=== PATIENT | female | born 1950 | race Caucasian/White ===

== ENCOUNTER 2017-06-25 11:00 | Outpatient (RCR) | payer MEDICARE, BC, SELFPAY ==
--- NOTE | 2017-04-14 15:57 | HP.PTEVAL_ITS ---
Patient's Visit Information CHRISTEL BOLIVAR is a 66 year old F referred to Physical Therapy by Out of Town Doctor JANE BLOOM with a diagnosis of Left TKR. Date of Evaluation: 04/14/17 Physical Therapist: Tameka Bal - Visit Plan Frequency: 2-3x /Week Duration: 6 Weeks Plan: 1 apt land and 1 apt water- focus on LE and core strength - Subjective Subjective: Left total knee replacement March 15- Right September 28. Has had home health since surgery and discharged last week. Is able to live on one floor- has stairs to get into the garage with hand raisl- no problems get around at home. Uses her walker at night and cane during the day. Lives with who can help as needed. 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 Was back to it after the first one but the left was hindering her more than the replaced one. Patient reports MD is happy with progress- does have some swelling- was put on mobic for swelling. When she is laying comfortable she has 1/10 pain. Worst: 3/10. Agg: standing to long, sitting to long, right after exercises. Has not been out in the barn but wants to get back as quick as possible. Left knee pain is located along the knee cap with no radiating pain. No N/T in the toes-but reports soreness. Goes back to the MD Apr 27- he was happy with progress when she saw him Nov 8- took x-rays and it looked great. Sleep: hard to get comfortable- sleeps with a pillow between her knees. Is not back to driving but was cleared as soon as she is off the oxycodone. PMHx: Fibro, head injury 2016 Jan. Meds: synthroid, mobic, chlorocon, lysinopril, vit D - Objective Posture: FH, RS, Increased kyphosis. Gait: antalgic- decreased stance on the left LE- single point cane- poor heel/toe pattern. Stairs: asc/desc 8 recip with cane and HR- poor control and uses UE A. HR/TR: WNL. Balance: WS but unable to SLS. Palpation: not tender. Incision: healing well. ROM: 5-115 degrees. Strength: Ankle: 5/5 Knee: 4+/5, Hip: 4/5, Core: fair - Goals Goal 1:: Patient will be I with HEP and progression Goal Time Frame: 4-6 Weeks Goal 2:: Patient will demo 0-120 degrees of ROM Goal Time Frame: 4-6 Weeks Goal 3:: Patient will demo 5/5 strength Goal Time Frame: 4-6 Weeks Goal 4:: Patient will ambulate >300 feet with a normalized gait pattern and LRD Goal Time Frame: 4-6 Weeks Goal 5:: Patient will asc/desc 8 recip with 1 HR and controlled descent Goal Time Frame: 4-6 Weeks - Rehabilitation Potential Physical Therapy Diagnosis: Patient presents with hypomobility- she has decreased ROM, strength and muscular endurance s/p TKR- leading to decreased ability to perform ADL's and functional mobility Rehabilitation Potential: Good - Anticipated Interventions Patient/Client Instruction: Educate patient on: Benefits of Fitness Program For the Purpose of:: To increase tolerance to activity/condition/position Therapeutic Exercise to Include: Strength training, Endurance training, Balance training, Agility training, Body mechanics, Postural training, Flexibilty training, Gait and locomotor training, In an aquatic setting, Passive ROM, Active ROM For the Purpose of:: To improve muscle performance and motor function TENS: Yes Cryotherapy (ice pack, ice massage): Yes Thermo therapy (hot pack): Yes Ultrasound (thermal/non thermal): No For the Purpose of:: To decrease pain Thank you for the opportunity to evaluate your patient. For Medicare and Medicare HMO plans, please review the plan of care and approve it. It will need to be FAXED BACK to us at [phone] for Medicare purposes. Please let me know if there are questions or concerns regarding this plan of care. Physician Signature: Date:
--- NOTE | 2017-05-21 11:31 | HP.PTREVAL_ITS ---
Out of Town Doctor, JANE BLOOM It has been my pleasure to treat CHRISTEL BOLIVAR over the last 11 visits for Left TKR. Please see the progress note below for an update on the physical therapy plan of care! Subjective: Patient reports that both knees are a little sore today. Its much better but it still stiff sometimes adam in the AM. Patient feels that she is 60 % better. Still can't carry full buckets and ride like she wants to ride. Balance is still a little tricky. Pain today is a 2/10 which is the worst its been in a long time. 1/10 most of the time. Is ready to progress to full land exercise. Objective/Function: Posture: good throughout. Gait: slightly antalgic- decreased heel/toe pattern. Stairs: asc/desc 8 recip with 1 HR- good pattern. ROM: 5-120 degrees. Palpation: tender along medil and lateral joint line. Strength: Ankle: 4+/5, Knee: 4/5, Hip: 4/5 throughout Plan Plan: Cont with POC 2x a week for 4 weeks Goals Goal 1:: Patient will be I with HEP and progression Goal Time Frame: 4-6 Weeks Goal Progress: Progressing Goal 2:: Patient will demo 0-120 degrees of ROM Goal Time Frame: 4-6 Weeks Goal Progress: Goal Met Goal 3:: Patient will demo 5/5 strength Goal Time Frame: 4-6 Weeks Goal Progress: Progressing Goal 4:: Patient will ambulate >300 feet with a normalized gait pattern and LRD Goal Time Frame: 4-6 Weeks Goal Progress: Progressing Goal 5:: Patient will asc/desc 8 recip with 1 HR and controlled descent Goal Time Frame: 4-6 Weeks Goal Progress: Progressing Anticipated Interventions Patient/Client Instruction: Educate patient on: Benefits of Fitness Program For the Purpose of:: To increase tolerance to activity/condition/position Therapeutic Exercise to Include: Strength training, Endurance training, Balance training, Agility training, Body mechanics, Postural training, Flexibilty training, Gait and locomotor training, In an aquatic setting, Passive ROM, Active ROM For the Purpose of:: To improve muscle performance and motor function TENS: Yes Cryotherapy (ice pack, ice massage): Yes Thermo therapy (hot pack): Yes Ultrasound (thermal/non thermal): No For the Purpose of:: To decrease pain Please do not hesitate to contact me at [phone] by phone or Fax: if you have questions or concerns regarding this new plan of care! Sincerely, Tameka Bal
--- NOTE | 2017-06-25 11:03 | HP.PTDCSUM_ITS ---
HP - PT D/C Summary It has been my pleasure to treat CHRISTEL BOLIVAR under orders from Out of Town Doctor, JANE BLOOM for the diagnosis of Left TKR for a total of 17 visit(s). Discharge Date: Please see the following information for a summary of their discharge status. - Subjective Subjective: Patient reports the knee is good most of the time but it gets stiff and painful sometimes. Has decreased endurance and standing time. Is back on her horse and can ride. She is still challenged by carrying 5 lb buckets. Patient feels that she is 85-90% She feels very functional for her standards. She has decreased pain. - Objective Objective/Function: Posture: FH, RS. Gait: slightly antalgic- decreased stance on the LE. Stairs: asc/desc 8 recip with 1 HR. HR/TR: WNL. SLS: 10 sec without UE A. 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 - D/C Information If there are questions or concerns regarding this patient's physical therapy, please feel free to call me at [phone]. Thank you for the referral of this patient. Sincerely, Tameka Bal
== END 2017-06-25 11:20 | disposition home or self-care (01) ==
LOC: PT 11:00
PROVIDERS: Family Provider Family Medicine Geriatric Medicine; PCP Family Medicine Geriatric Medicine
DX: Z96.652 Presence of left artificial knee joint (principal); M17.12 Unilateral primary osteoarthritis, left knee
CPT/HCPCS: 97110; 97113; 97162; 97530; G8978; G8979

== ENCOUNTER → 2018-03-07 10:37 | Outpatient (CLI) | payer MEDICARE, BC, SELFPAY ==
[2018-03-07 12:53] LABS: ALB/GLOB Ratio 1.1 RATIO (0.9-2.4); AST(SGOT) 25 U/L (15-37); Alanine Aminotransfer ALT/SGPT 28 U/L (13-56); Albumin, Serum 3.8 g/dL (3.2-5.0); Alkaline Phosphatase 99 U/L (45-117); Anion Gap 7 (5-15); BUN 12 mg/dL (7-18); BUN/Creat Ratio 14.4 RATIO (10-20); Calcium,Total 8.6 mg/dL (8.5-10.1); Chloride 105 mmol/L (98-107); Creatinine, Serum 0.83 mg/dL (0.55-1.02); EST Glomerular Filtration Rate 73 mL/min (>60); Est Glom Filt Rate - Afr Amer 88 mL/min (>60); Globulin 3.4 g/dL (2.2-4.2); Glucose 120 mg/dL (74-106); Potassium 3.6 mmol/L (3.5-5.1); Protein, Total 7.2 g/dL (6.4-8.2); Sodium Level 142 mmol/L (136-145); Thyroid Stim Hormone (TSH) 0.74 uIU/mL (0.358-3.74)
== END ==
PROVIDERS: Family Provider Family Medicine Geriatric Medicine; PCP Family Medicine Geriatric Medicine; Referring Provider Internal Medicine Endocrinology, Diabetes & Metabolism; Visit Provider Internal Medicine Endocrinology, Diabetes & Metabolism
DX: E03.8 Other specified hypothyroidism (principal)
CPT/HCPCS: 36415; 80053; 84443

== ENCOUNTER → 2018-05-11 09:43 | Outpatient (CLI) | payer MEDICARE, BC, SELFPAY ==
[2018-05-11 11:28] LABS: Absolute Lymphocyte Count 1.35 X10^3/ul (0.83-4.51); Absolute Neutrophil Count 2.7 X10^3/uL (2.0-7.7); Basophil# 0.12 X10^3/uL; Basophil% 2.3 % (0-1); Eosinophil# 0.35 X10^3/uL; Eosinophils% 6.6 % (0-5); Hematocrit 47.3 % (37-47); Hemoglobin 15.8 g/dl (12.0-15.0); Lymphocyte # 1.35 X10^3/ul (4.0); Lymphocyte % 25.6 % (19-41); Mean Corp Hgb Conc 33.4 g/gl (32-36); Mean Corpuscular Hgb 29.6 pg (27.0-32.0); Mean Corpuscular Volume 88.7 fL (81-99); Monocyte# 0.73 X10^3/uL; Monocyte% 13.8 % (0-10); Neutrophil # 2.72 X10^3/uL (2.7-7.7); Neutrophil % 51.5 % (47-70); Platelet Count 177 K/mm3 (150-450); RBC Distribution Width CV 13.3 % (11.6-14.6); RBC Distribution Width SD 43.1 fl (35.1-43.9); Red Blood Count 5.33 M/mm3 (4.2-5.4); White Blood Count 5.3 K/mm3 (4.4-11.0)
[2018-05-11 11:36] LABS: POSITIVE COUNT NO; POSITIVE DIFFERENTIAL NO; POSITIVE MORPHOLOGY NO
[2018-05-11 11:47] LABS: AST(SGOT) 23 U/L (15-37); Alanine Aminotransfer ALT/SGPT 27 U/L (13-56); Albumin, Serum 3.8 g/dL (3.2-5.0); Alkaline Phosphatase 111 U/L (45-117); Anion Gap 9 (5-15); BUN 11 mg/dL (7-18); BUN/Creat Ratio 16.3 RATIO (10-20); Calcium,Total 8.6 mg/dL (8.5-10.1); Chloride 106 mmol/L (98-107); Creatinine, Serum 0.67 mg/dL (0.55-1.02); EST Glomerular Filtration Rate 93 mL/min (>60); Est Glom Filt Rate - Afr Amer 112 mL/min (>60); Globulin 3.7 g/dL (2.2-4.2); Glucose 133 mg/dL (74-106); Potassium 3.8 mmol/L (3.5-5.1); Protein, Total 7.5 g/dL (6.4-8.2); Sodium Level 142 mmol/L (136-145); Thyroid Stim Hormone (TSH) 0.64 uIU/mL (0.358-3.74)
[2018-05-11 12:08] LABS: Vitamin D,25 Hydroxy 36.8 ng/mL (29.95-100.01)
--- OUTSIDE RECORDS SUMMARY | 2018-08-12 12:46 | XMS RPT_ITS ---
:1950 Author Organization [facility] Care Team Providers Name Role Phone ROSCOE OLEA JR Attending Unavailable ROSCOE OLEA JR Referring Unavailable ROSCOE OLEA JR Referring Unavailable ROSCOE OLEA JR Referring Unavailable ROSCOE OLEA JR Attending Unavailable ROSCOE OLEA JR Referring Unavailable XIN BERRY (VP TREASURER) Attending Unavailable DEVAN, JAKE CHI Referring Unavailable JUAN CARLOS BLAKE, DR. ALEMAN Attending Unavailable Basilio Jean Attending Unavailable Devan, Jake Chi Referring Unavailable DOCTOR, OUT OF TOWN Attending Unavailable Devan, Jake Chi Primary Care Unavailable DOCTOR, OUT OF TOWN Attending Unavailable Devan, Jake Chi Primary Care Unavailable ROLLY CHILDERS Referring Unavailable Devan, Jake Chi Attending Unavailable Devan, Jake Chi Primary Care Unavailable KASSI DICKSON Attending Unavailable KASSI DICKSON Referring Unavailable Devan, Jake Chi Primary Care Unavailable PROBLEMS PROBLEMS DATE TYPE CONDITION / CODE ATTENDING STATUS SOURCE 05/11/2018 Unknown E55.9 - Vitamin D Devan, Jake Chi Active [facility] deficiency, Community unspecified / Hospital E55.9(ICD-10) Repository 05/11/2018 Unknown I10 - Essential Devan, Jake Chi Active [place] (primary) Community hypertension / Hospital I10(ICD-10) Repository 03/08/2018 Active Unknown / ROSCOE OLEA JR Active [facility] UNK(Unknown) [facility] [place] Repository 06/08/2017 Active [facility] of left NA Active [place] artificial knee [facility] Main joint / [place] Z96.652(ICD-10) Repository 03/07/2018 Unknown E03.8 - Other KASSI DICKSON Active [place] specified Community hypothyroidism / Hospital E03.8(ICD-10) Repository 08/03/2017 Active Encounter for NA Active [facility] screening mammogram Clinic Main for malignant [place] neoplasm of breast / Repository Z12.31(ICD-10) 06/25/2017 Unknown Z96.652 - Presence DOCTOR, OUT OF Active [facility] of left artificial TOWN Community knee joint / Hospital Z96.652(ICD-10) Repository PROCEDURES PROCEDURES No Procedure Records FoundRESULTS RESULTS URGENT CARE VISIT Observed: 06/02/2018 Status: F Source: [facility] REPORT 1:33 PM [facility] REPOSITORY [facility] [address] [place] [address] 6 [place] [address] OFFICE VISIT Date of Service: 06/02/18 MR#: [id number] Acct: [id number] Name: GEGE BOLIVAR Tc Rep #: [id number] : 1950 Provider: Basilio AVALOS Age/Sex: 67/F Location: [facility] Status: Signed Intake Vital Signs06/02/18 Height 5 ft 6 in 06/02/18 Weight: 170 lb 06/02/18 Body Mass Index (BMI) 27.4 06/02/18 Blood Pressure 138/86 H Intake Visit Reasons: Sinus infection Chief Complaint: Facial pressure, postnasal drip Brazing Machine Tender Required: No Accompanied by: SELF Is patient in pain?: No Allergies venom-honey bee [bee venom (honey bee)] Allergy (Verified 06/02/18 13:14) Anaphylaxis acetaminophen [From Darvocet-N] Adverse Reaction (Verified 06/02/18 13:14) Nausea/Vom/Diarrhea propoxyphene [From Darvocet-N] Adverse Reaction (Verified 06/02/18 13:14) Nausea/Vom/Diarrhea Medications amoxicillin 500 mg capsule 1,000 mg PO BID 10 Days #40 cap 06/02/18 [Rx Confirmed 06/02/18] PFSH Medical History Arthritis (Acute) Hypertension (Chronic) Surgical History History of knee replacement (Acute) Social History Smoking Status: Never smoker alcohol intake: never HPI HPI Chief Complaint: Facial pressure, postnasal drip Details: GEGE BOLIVAR, is a 67 F who presents to the office today for initial evaluation approximately 10-day history of progressively worsening facial pressure and postnasal drip and chills. Patient notes no complaints of fever, sweats, rash, cough, chest pain/shortness of breath/wheeze. She is a non-smoker noting no other members in household with similar complaints. She has taken no synw-cbz-yxknnyx products to assist with her symptoms. She notes no other associated symptoms and no other alleviating or aggravating factors. ROS Const Constitutional: No other (ROS negative x10 other than as noted above) Exam Const General: cooperative, healthy appearing, no acute distress, uncomfortable Nutritional Appearance: average body habitus Orientation: alert, awake, oriented x3 HENSC Head: normal to inspection Ears: hearing grossly normal bilaterally, external ears normal, TM's normal bilaterally, EAC's normal Nose: external nose normal, nares normal, septum normal, no nasal discharge Face and sinus: normal facial exam, face symmetric, sinus tenderness maxillary (R>L, with right maxillary fullness to palpation appreciated ) and frontal Eyes General: appearance normal, both eyes and all related structures Neck Neck: normal visual inspection, full ROM, no meningeal signs, supple, lymphadenopathy (Right anterior cervical lymph node tenderness to palpation) Neck mass: No Thyroid: thyroid normal Chest Chest palpation AND inspection: normal inspection of the chest Resp Effort AND Inspection: normal respiratory effort, able to speak in complete sentences, symmetric chest movement, no cough Auscultation: Bilateral: Clear to Auscultation Cardio Palpation: normal PMI Rate: regular rate Rhythm: regular rhythm Heart Sounds: S1 normal, S2 normal, no gallops, no murmurs, no rubs Pulses: radial pulses present GI Inspection: normal to inspection Palpation: soft, no hepatosplenomegaly Skin General: no rashes or lesions noted Neuro General: alert, awake, oriented x3, gait normal Cognition: normal cognition Speech: speech normal Gait: normal gait Motor: muscle tone normal throughout Sensory Exam: no sensory deficits noted Psych Appearance: grossly normal Mental Status: mental status grossly normal Mood: congruent mood Affect: normal affect Speech and Movement: speech and movement normal Attitude: cooperative Thought Process: normal Thought Content: normal Judgment: judgment good Assessment AND Plan 1. Sinusitis J32.9 Plan Detail Other Medications New: Additional Comments Amoxicillin as prescribed today. Clear fluids, rest, ibuprofen, warm facial compresses as needed as instructed today. Avoid tobacco smoke exposure. Follow-up PCP in 3-5 days should symptoms not improve, sooner should symptoms worsen or any other concerns develop. Patient states acknowledging understanding all the above. This note was generated with Mindscore dictation software. It may contain incorrect words, spelling, and punctuation that were not noted in checking the note before signing. Coding Level of Care Code Off vis,new,level 3 Diagnoses Sinusitis J32.9 06/02/18 1333 <Electronically signed by Basilio AVALOS> Date Basilio AVALOS Cosigner Signature: Date (if applicable) CC: CBC W/DIFF, AUTOMATED Collected: 05/11/2018 Status: F Source: [facility] 9:45 AM REPOSITORY TYPE CODE TESTS RESULT OUT OF RANGE REFERENCE UNITS LAB L100.1000 4.4-11.0 K/mm3 Normal WBC 5.3 LAB L100.1200 4.2-5.4 M/mm3 Normal RBC 5.33 LAB L100.1300 12.0-15.0 g/dl High HGB 15.8 LAB L100.1400 37-47 % High HCT 47.3 LAB L100.1500 81-99 fL Normal MCV 88.7 LAB L100.1600 27.0-32.0 pg Normal MCH 29.6 LAB L100.1700 32-36 g/gl Normal MCHC 33.4 LAB L100.1810 11.6-14.6 % Normal RDW CV 13.3 LAB L100.1820 35.1-43.9 fl Normal RDW SD 43.1 LAB L100.1900 150-450 K/mm3 Normal PLT 177 LAB L100.2000 6.2-12.0 fl Normal MPV 12.0 LAB L100.2100 47-70 % Normal NEUT% 51.5 LAB L100.2200 19-41 % Normal LY% 25.6 LAB L100.2300 0-10 % High MONO% 13.8 LAB L100.2400 0-5 % High EO% 6.6 LAB L100.2500 0-1 % High BASO% 2.3 LAB L100.2550 0.0-0.9 % Normal IM GRAN % 0.200 Result Comment: IG% - Immature Granulocytes (promyelocytes, myelocytes and metamyelocytes) > 1% indicates that a LEFT SHIFT is Present. LAB L100.2620 2.0-7.7 X10 3/uL Normal Absolute Neut 2.7 LAB L100.2720 0.83-4.51 X10 3/ul Normal Absolute Lymph 1.35 Performed By: #### L100.0100 #### [facility] [address] [place], [address] COMPREHENSIVE METABOLIC Collected: 05/11/2018 Status: F Source: [facility] 9:45 AM REPOSITORY TYPE CODE TESTS RESULT OUT OF RANGE REFERENCE UNITS LAB L501.0100 74-106 mg/dL High GLU 133 Result Comment: Fasting Glucose result greater than or equal to 126 mg/dL suggests DIABETES MELLITUS per A.D.A. criteria. Please note revised GLUCOSE reference range effective 2017. LAB L501.1000 7-18 mg/dL Normal BUN 11 LAB L501.1100 0.55-1.02 mg/dL Normal CREAT,SERUM 0.67 Result Comment: The validity of the calculated GFR AND GFRAA in patients over 70 years has not been determined. Clinical correlation is essential. LAB L501.1110 >60 mL/min Normal EST GFR 93 Result Comment: Non- GFR Calc LAB L501.1115 >60 mL/min Normal EST GFR - AA 112 Result Comment: GFR Calc LAB L501.1300 10-20 RATIO Normal BUN/CRE 16.3 LAB L501.1500 6.4-8.2 g/dL T Normal PROT 7.5 LAB L501.1800 3.2-5.0 g/dL Normal ALB 3.8 LAB L501.1950 2.2-4.2 g/dL Normal GLOB 3.7 LAB L501.2000 0.9-2.4 RATIO Normal A/G 1.0 LAB L501.2200 8.5-10.1 mg/dL CA Normal 8.6 LAB L501.4100 15-37 U/L Normal AST 23 LAB L501.4305 45-117 U/L Normal ALK P 111 LAB L501.4405 13-56 U/L Normal ALT 27 LAB L501.4600 0.20-1.00 mg/dL High T BILI 1.70 LAB L501.5300 136-145 mmol/L NA Normal 142 LAB L501.5600 3.5-5.1 mmol/L K Normal 3.8 LAB L501.5900 98-107 mmol/L CL Normal 106 LAB L501.6100 21.0-32.0 mmol/L Normal CO2 27.0 LAB L501.6200 5-15 Normal GAP 9 Performed By: #### L500.4050, L501.9520 #### [facility] [address] [place], [place], [address] THYROID STIM HORMONE Collected: 05/11/2018 Status: F Source: [facility] ([facility]) 9:45 AM REPOSITORY TYPE CODE TESTS RESULT OUT OF RANGE REFERENCE UNITS LAB L501.9520 0.358-3.74 uIU/mL Normal TSH 0.64 Performed By: #### L500.4050, L501.9520 #### [facility] [address] [place], [address] VITAMIN D,25 HYDROXY Collected: 05/11/2018 Status: F Source: [facility] 9:45 AM REPOSITORY TYPE CODE TESTS RESULT OUT OF RANGE REFERENCE UNITS LAB L506.1000 29.95-100.01 ng/mL Normal Vitamin D 36.8 25-OH Result Comment: Vitamin D 25(OH) Status Range Deficiency <20 ng/mL (50nmol/L) Insuffciency 20 - 30 ng/mL (50 - 75 nmol/L) Sufficiency 30 - 100 ng/mL (75 - 250 nmol/L) Toxicity >100 ng/mL (>250 nmol/L) Performed By: #### L506.1000 #### [facility] [address] [place], [address] PROGRESS Observed: 03/08/2018 Status: COMPLETED Source: [facility] 1:16 PM [facility] REPOSITORY O ID: [id number] Author: Jane Galloway Service: (none) Author Type: Physician Chromosomal Disorders Counselor Type: Progress Notes Filed: 03/08/2018 2:40 PM Note Text: HISTORY: Gege is a 67 year old female. She is here for her yearly follow up on her left total knee arthroplasty. She has no complaints of any pain in the knee. She has some soreness when the weather changes but this is tolerable. She has no complaints of pain in the right knee either. This knee was replaced about 6 months ago. She is pleased with her outcome of her surgery. She has been able to horseback ride without any trouble. She denies any numbness in her feet. The patient's past medical history, surgical history, social history, family history, medications and allergies were reviewed with the patient today and are available in the chart for further review. REVIEW OF SYSTEMS: Patient did not have, and does not currently have, any weight loss, malaise, fever, chills, headache, chest pain, chest pressure, palpitations, cough, shortness of breath, orthopnea, paroxsymal nocturnal dyspnea, nausea, vomiting, diarrhea, constipation, melena, hematochezia, urinary difficulties, prolonged bleeding, easily bruising, heat or cold intolerance, new onset joint pain or swelling, new onset extremity weakness or numbness, new onset auditory or visual disturbances, lightheadedness, dizziness, partial loss of consciousness or full loss of consciousness. PHYSICAL EXAMINATION: PSYCH: Pleasant, good affect and mood General Appearance: Well appearing, alert, in no acute distress, well-hydrated, well nourished.. Skin: Skin color, texture, turgor normal, no suspicious rashes or lesions. Peripheral Pulses: Normal. Neurologic: Gait normal. Reflexes normal and symmetric. Sensation grossly intact. On physical examination of the knees, the skin is intact. There is no erythema or warmth. Extensor mechanisms are intact bilaterally. She has full extension bilaterally. Flexion is to 120 degrees bilaterally. There is no instability with varus or valgus stress at 0 or 30 degrees. Calves are soft and non-tender. RADIOGRAPHS: knee films show prothesis to be in stable position. There is no evidence of loosening ,failure, subsidence bilaterally. IMPRESSION: Encounter Diagnosis ICD-10-CM 1. S/P total knee replacement using cement, left Z96.652 2. Status post total right knee replacement Z96.651 PLAN: Patient is doing well. She may continue to advance her activities as tolerated. Anything that causes pain she should back off of. I reminded her of the importance of prophylactic antibiotics prior to any dental procedures. I will see her next year for her yearly follow up and xrays of both knees. Jane Galloway PA-C XR KNEE 3V AP/LAT/MERCHANT Observed: 03/08/2018 Status: F Source: [facility] 10:41 AM [facility] REPOSITORY * * *Final Report* * * DATE OF EXAM: Mar 08 2018 10:41AM AFR 5208 - XR KNEE 3V AP/LAT/MERCHANT LT / PROCEDURE REASON: S/P total knee replacement using cement, left * * * * Physician Interpretation * * * * EXAMINATION: XR KNEE 3V AP/LAT/MERCHANT LT HISTORY: BILATERAL KNEE PAIN 11.5 MONTH F/U LEFT TKR S/P total knee replacement using cement, left . TECHNIQUE: XR KNEE 3V AP/LAT/MERCHANT LT Laterality: LEFT Number of different views (projections): 3 COMPARISON: 09/07/2017 RESULT: Status post total knee arthroplasty. No evidence of implant failure. No other significant abnormality. IMPRESSION: NORMAL POSTOPERATIVE FINDINGS [place] Operator: BUSTER Transcribe Date/Time: Mar 08 2018 10:47A Dictated by : WINSTON HUITRON MD This examination was interpreted and the report reviewed and electronically signed by: WINSTON HUITRON MD on Mar 08 2018 10:48AM EST [id number] PROGRESS Observed: 03/08/2018 Status: COMPLETED Source: [facility] 10:37 AM [facility] REPOSITORY O ID: [id number] Author: Elias (Rt) Kenyetta Grullon Service: (none) Author Type: Motion Picture Critic Type: Progress Notes Filed: 03/08/2018 10:39 AM Note Text: Radiology Service Progress Note PATIENT NAME: Gege Boilvar DATE OF SERVICE: March 08, 2018 TIME: 10:37 AM PATIENT IDENTITY VERIFICATION COMPLETED USING TWO (2) METHODS: Patient confirmed name verbally and Date of . PATIENT GENDER DATA: Female. status: : No status: NO. PATIENT RELEVANT IMPLANT DATA REVIEWED: Not Applicable RADIOLOGY DEPARTMENT: General X-ray: Exam(s) Completed: Lower Extremity X-Ray(s): Knee, AP / Lat / Merchant Left and Wt. Bearing: PERIPHERAL IV DATA: Not applicable SIGNED BY: RT Lin March 08, 2018 10:37 AM CNOV Observed: 03/08/2018 Status: COMPLETED Source: [facility] 10:30 AM [facility] REPOSITORY Office Visit (ORAVON) KATTGEGE Tc ([id number]) 1950 F Date Time Provider Department 03/08/18 10:30 JANE ROSA PA-C During your visit today, we recorded the following information about you: Jane Galloway PA-C 03/08/2018 2:40 PM Signed HISTORY: Gege is a 67 year old female. She is here for her yearly follow up on her left total knee arthroplasty. She has no complaints of any pain in the knee. She has some soreness when the weather changes but this is tolerable. She has no complaints of pain in the right knee either. This knee was replaced about 6 months ago. She is pleased with her outcome of her surgery. She has been able to horseback ride without any trouble. She denies any numbness in her feet. The patient's past medical history, surgical history, social history, family history, medications and allergies were reviewed with the patient today and are available in the chart for further review. REVIEW OF SYSTEMS: Patient did not have, and does not currently have, any weight loss, malaise, fever, chills, headache, chest pain, chest pressure, palpitations, cough, shortness of breath, orthopnea, paroxsymal nocturnal dyspnea, nausea, vomiting, diarrhea, constipation, melena, hematochezia, urinary difficulties, prolonged bleeding, easily bruising, heat or cold intolerance, new onset joint pain or swelling, new onset extremity weakness or numbness, new onset auditory or visual disturbances, lightheadedness, dizziness, partial loss of consciousness or full loss of consciousness. PHYSICAL EXAMINATION: PSYCH: Pleasant, good affect and mood General Appearance: Well appearing, alert, in no acute distress, well-hydrated, well nourished.. Skin: Skin color, texture, turgor normal, no suspicious rashes or lesions. Peripheral Pulses: Normal. Neurologic: Gait normal. Reflexes normal and symmetric. Sensation grossly intact. On physical examination of the knees, the skin is intact. There is no erythema or warmth. Extensor mechanisms are intact bilaterally. She has full extension bilaterally. Flexion is to 120 degrees bilaterally. There is no instability with varus or valgus stress at 0 or 30 degrees. Calves are soft and non-tender. RADIOGRAPHS: knee films show prothesis to be in stable position. There is no evidence of loosening ,failure, subsidence bilaterally. IMPRESSION: Encounter Diagnosis ICD-10-CM 1. S/P total knee replacement using cement, left Z96.652 2. Status post total right knee replacement Z96.651 PLAN: Patient is doing well. She may continue to advance her activities as tolerated. Anything that causes pain she should back off of. I reminded her of the importance of prophylactic antibiotics prior to any dental procedures. I will see her next year for her yearly follow up and xrays of both knees. Jane Galloway PA-C Referring Provider: ROSCOE OLEA JR [[id number]] Allergies As of Date: 03/08/2018 Noted Allergy Reaction BEES 12/19/2008 10 - Anaphylaxis PINE TREES (TREES) 12/19/2008 2 - Rash Comments: sap from pine trees Date Reviewed: 03/08/2018 Reviewed by: Peter Medina (At) Clarissa - Fully Assessed Reason for Visit: Left Knee Pain [1208] Primary Visit Diagnosis:S/P total knee replacement using cement, left [Z96.652] Other Visit Diagnosis:Status post total right knee replacement [Z96.651] Prescriptions as of 03/08/2018 Sig: ASCORBIC ACID (VITAMIN C) 500* Take 1 tablet by mouth twice * LEVOTHYROXINE 25 MCG TABLET Take 37.5 mcg by mouth daily * ACETAMINOPHEN 500 MG TABLET Take 2 tablets by mouth every* Patient taking differently: Take 1,000 mg by mouth every * DOCUSATE SODIUM 100 MG CAPSULE Take 1 capsule by mouth twice* CHOLECALCIFEROL (VITAMIN D3) * Take 1,000 Units by mouth onc* ERGOCALCIFEROL (VITAMIN D2) 5* Take 50,000 Units by mouth on* LISINOPRIL 20 MG TABLET Take 40 mg by mouth once jose* MAGNESIUM 200 MG TABLET Take 250 mg by mouth once mary jane* ONE-A-DAY WOMENS FORMULA ORAL Take 1 tablet by mouth once d* KLOR-CON M20 ORAL Take 1 tablet by mouth twice * CITRACAL ORAL Take 1 tablet by mouth twice * CETIRIZINE 10 MG CAPSULE Take 10 mg by mouth once jose* EPINEPHRINE 0.3 MG/0.3 ML INJ* Inject 0.3 mL subcutaneously * Problem List As Of Date 03/08/2018 Noted Resolved Primary osteoarthritis of right knee [M17.11] INVALID FOR*06/08/2017 HTN (hypertension) [I10] INVALID FOR* Acquired hypothyroidism [E03.9] INVALID FOR* Subarachnoid bleed (HCC) [I60.9] INVALID FOR* Osteoarthritis of right knee [M17.11] INVALID FOR*06/08/2017 Osteoarthritis of left knee [M17.12] INVALID FOR*06/08/2017 More... S/P total knee replacement using cement, left [*INVALID FOR* Encounter Status:Closed by JANE GALLOWAY PA-C on 03/08/18 COMPREHENSIVE METABOLIC Collected: 03/07/2018 Status: F Source: [facility] 10:42 AM REPOSITORY TYPE CODE TESTS RESULT OUT OF RANGE REFERENCE UNITS LAB L501.0100 74-106 mg/dL High GLU 120 Result Comment: Fasting Glucose result from 100 to 125 mg/dL suggests IMPAIRED HOMEOSTASIS per A.D.A. criteria. Please note revised GLUCOSE reference range effective 2017. LAB L501.1000 7-18 mg/dL Normal BUN 12 LAB L501.1100 0.55-1.02 mg/dL Normal CREAT,SERUM 0.83 Result Comment: The validity of the calculated GFR AND GFRAA in patients over 70 years has not been determined. Clinical correlation is essential. LAB L501.1110 >60 mL/min Normal EST GFR 73 Result Comment: Non- GFR Calc LAB L501.1115 >60 mL/min Normal EST GFR - AA 88 Result Comment: GFR Calc LAB L501.1300 10-20 RATIO Normal BUN/CRE 14.4 LAB L501.1500 6.4-8.2 g/dL T Normal PROT 7.2 LAB L501.1800 3.2-5.0 g/dL Normal ALB 3.8 LAB L501.1950 2.2-4.2 g/dL Normal GLOB 3.4 LAB L501.2000 0.9-2.4 RATIO Normal A/G 1.1 LAB L501.2200 8.5-10.1 mg/dL CA Normal 8.6 LAB L501.4100 15-37 U/L Normal AST 25 LAB L501.4305 45-117 U/L Normal ALK P 99 LAB L501.4405 13-56 U/L Normal ALT 28 LAB L501.4600 0.20-1.00 mg/dL High T BILI 2.10 LAB L501.5300 136-145 mmol/L NA Normal 142 LAB L501.5600 3.5-5.1 mmol/L K Normal 3.6 LAB L501.5900 98-107 mmol/L CL Normal 105 LAB L501.6100 21.0-32.0 mmol/L Normal CO2 30.0 LAB L501.6200 5-15 Normal GAP 7 Performed By: #### L500.4050, L501.9520 #### [facility] [address] [place], [address] THYROID STIM HORMONE Collected: 03/07/2018 Status: F Source: [place] ([facility]) 10:42 AM REPOSITORY TYPE CODE TESTS RESULT OUT OF RANGE REFERENCE UNITS LAB L501.9520 0.358-3.74 uIU/mL Normal TSH 0.74 Performed By: #### L500.4050, L501.9520 #### [facility] [address] [facility] [place], [address] PROGRESS Observed: 09/07/2017 Status: COMPLETED Source: [facility] 11:57 AM [facility] REPOSITORY O ID: [id number] Author: Roscoe Olea Jr. Service: (none) Author Type: Physician Type: Progress Notes Filed: 09/07/2017 12:04 PM Note Text: HISTORY: Gege is a 67 year old female. She is 6 months status post left total knee arthroplasty. She has no complaints of pain in the knee. She has returned to horseback riding. She has some aching/sorenss in the knees after standing, walking and riding for long periods of time. She continues to work on her exercises at home. She states that her pain is better then before surgery. She denies any numbness or tingling in her foot. The patient's past medical history, surgical history, social history, family history, medications and allergies were reviewed with the patient today and are available in the chart for further review. EXAMINATION: On physical examination of the left knee, the skin is intact. There is no erythema or warmth. Extensor mechanisms intact. She has full extension and flexion to 120?. There is no instability with varus or valgus stress at 0 and 30?. Calf is soft nontender. Sensation intact light touch in the foot. RADIOGRAPHS: Left knee films show components to be in stable position. There is no evidence of loosening, failure or subsidence. IMPRESSION: Encounter Diagnosis ICD-10-CM 1. Status post total left knee replacement Z96.652 PLAN: Patient is doing very well. She may continue to advance her activities as she tolerates it. The little aches and pains that she has now will continue to improve over the next 6 months. We can try a lidocaine cream to see if this helps with the aching and soreness of her knees after long days. I have sent this to the pharmacy for her today. I advised her that this does not look like it is covered by her insurance so she should ask about pricing before picking up. Patient understood. If this is too expensive she should use OTC lidoderm patches and the OTC aspercream with lidocaine. If anything increases her pain she should back off. She can ice the knees if they get sore. I will see her back in 6 months for follow up on both knees. I reminded her of the importance of prophylactic antibiotics prior to any dental procedure. Jane Galloway PA-C I've had a [id number]-rgmt diagnostic encounter with patient today. She is 6 months status post left total knee arthroplasty. She has no points of any pain. She is full extension and flexion to 120?. I reviewed and agree with plan above. We'll see her back in February for follow-up on both total arthroplasties. Roscoe Olea Jr, MD XR KNEE 3V AP/LAT/MERCHANT Observed: 09/07/2017 Status: F Source: [facility] 11:18 AM [facility] REPOSITORY * * *Final Report* * * DATE OF EXAM: Sep 07 2017 11:18AM AFR [id number] - XR KNEE 3V AP/LAT/MERCHANT LT / PROCEDURE REASON: Presence of left artificial knee joint * * * * Physician Interpretation * * * * EXAMINATION: XR KNEE 3V AP/LAT/MERCHANT LT HISTORY: POST OP NO COMPLAINTS 02/2017 Presence of left artificial knee joint . TECHNIQUE: XR KNEE 3V AP/LAT/MERCHANT LT Laterality: LEFT Number of different views (projections): 3 M: XB_1 COMPARISON: 03/31/2017 RESULT: Cemented total knee arthroplasty with normally aligned resurfaced patella shows no change in position and alignment in comparison to the previous examination. No periprosthetic or other osseous change. No other significant abnormality. IMPRESSION: Stable cemented left total knee arthroplasty with normally aligned resurfaced patella unchanged in comparison to the previous examination. [place] Operator: BUSTER Transcribe Date/Time: Sep 07 2017 11:58A Dictated by : DELLA RUIZ MD This examination was interpreted and the report reviewed and electronically signed by: DELLA RUIZ MD on Sep 07 2017 11:59AM EST [id number] PROGRESS Observed: 09/07/2017 Status: COMPLETED Source: [facility] 11:17 AM [facility] REPOSITORY HNO ID: [id number] Author: Marita Woodall (Rt) [place] Service: (none) Author Type: Motion Picture Critic Type: Progress Notes Filed: 09/07/2017 11:18 AM Note Text: Radiology Service Progress Note PATIENT NAME: Gege Bolivar DATE OF SERVICE: September 07, 2017 TIME: 11:17 AM PATIENT IDENTITY VERIFICATION COMPLETED USING TWO (2) METHODS: Patient confirmed name verbally and Date of . PATIENT GENDER DATA: Female. status: : No status: NO. PATIENT RELEVANT IMPLANT DATA REVIEWED: Not Applicable RADIOLOGY DEPARTMENT: General X-ray: Exam(s) Completed: Lower Extremity X-Ray(s): Knee, AP / Lat / Merchant Left and Wt. Bearing: PERIPHERAL IV DATA: Not applicable SIGNED BY: RT Avel September 07, 2017 11:17 AM CNOV Observed: 09/07/2017 Status: COMPLETED Source: [facility] 10:30 AM [facility] REPOSITORY Office Visit (ORAVON) GEGE BOLIVAR ([id number]) 1950 F Date Time Provider Department 09/07/17 10:30 AM ROSCOE OLEA JR During your visit today, we recorded the following information about you: Roscoe Olea Jr, MD 09/07/2017 12:04 PM Signed HISTORY: Gege is a 67 year old female. She is 6 months status post left total knee arthroplasty. She has no complaints of pain in the knee. She has returned to horseback riding. She has some aching/sorenss in the knees after standing, walking and riding for long periods of time. She continues to work on her exercises at home. She states that her pain is better then before surgery. She denies any numbness or tingling in her foot. The patient's past medical history, surgical history, social history, family history, medications and allergies were reviewed with the patient today and are available in the chart for further review. EXAMINATION: On physical examination of the left knee, the skin is intact. There is no erythema or warmth. Extensor mechanisms intact. She has full extension and flexion to 120?. There is no instability with varus or valgus stress at 0 and 30?. Calf is soft nontender. Sensation intact light touch in the foot. RADIOGRAPHS: Left knee films show components to be in stable position. There is no evidence of loosening, failure or subsidence. IMPRESSION: Encounter Diagnosis ICD-10-CM 1. Status post total left knee replacement Z96.652 PLAN: Patient is doing very well. She may continue to advance her activities as she tolerates it. The little aches and pains that she has now will continue to improve over the next 6 months. We can try a lidocaine cream to see if this helps with the aching and soreness of her knees after long days. I have sent this to the pharmacy for her today. I advised her that this does not look like it is covered by her insurance so she should ask about pricing before picking up. Patient understood. If this is too expensive she should use OTC lidoderm patches and the OTC aspercream with lidocaine. If anything increases her pain she should back off. She can ice the knees if they get sore. I will see her back in 6 months for follow up on both knees. I reminded her of the importance of prophylactic antibiotics prior to any dental procedure. Jane Galloway PA-C I've had a [id number] diagnostic encounter with patient today. She is 6 months status post left total knee arthroplasty. She has no points of any pain. She is full extension and flexion to 120?. I reviewed and agree with plan above. We'll see her back in February for follow-up on both total arthroplasties. Roscoe Olea Jr, MD Referring Provider: ROSCOE OLEA JR [[id number]] Allergies As of Date: 09/07/2017 Noted Allergy Reaction BEES 12/19/2008 10 - Anaphylaxis PINE TREES (TREES) 12/19/2008 2 - Rash Comments: sap from pine trees Date Reviewed: 09/07/2017 Reviewed by: Yamel Harkins Ma - Fully Assessed Reason for Visit: Follow Up [171] Primary Visit Diagnosis:Status post total left knee replacement [Z96.652] Order(s):lidocaine (LMX) 4 % creamApply 1 application to affected area twice daily for 7 days.Disp: 30 gRfl: 2 Prescriptions as of 09/07/2017 Sig: LIDOCAINE 4 % TOPICAL CREAM Apply 1 application to affect* ASCORBIC ACID (VITAMIN C) 500* Take 1 tablet by mouth twice * LEVOTHYROXINE 25 MCG TABLET Take 37.5 mcg by mouth daily * ACETAMINOPHEN 500 MG TABLET Take 2 tablets by mouth every* Patient taking differently: Take 1,000 mg by mouth every * DOCUSATE SODIUM 100 MG CAPSULE Take 1 capsule by mouth twice* CHOLECALCIFEROL (VITAMIN D3) * Take 1,000 Units by mouth onc* ERGOCALCIFEROL (VITAMIN D2) 5* Take 50,000 Units by mouth on* LISINOPRIL 20 MG TABLET Take 40 mg by mouth once jose* MAGNESIUM 200 MG TABLET Take 250 mg by mouth once amry jane* ONE-A-DAY WOMENS FORMULA ORAL Take 1 tablet by mouth once d* KLOR-CON M20 ORAL Take 1 tablet by mouth twice * CITRACAL ORAL Take 1 tablet by mouth twice * CETIRIZINE 10 MG CAPSULE Take 10 mg by mouth once jose* EPINEPHRINE 0.3 MG/0.3 ML INJ* Inject 0.3 mL subcutaneously * Problem List As Of Date 09/07/2017 Noted Resolved Primary osteoarthritis of right knee [M17.11] INVALID FOR*06/08/2017 HTN (hypertension) [I10] INVALID FOR* Acquired hypothyroidism [E03.9] INVALID FOR* Subarachnoid bleed (HCC) [I60.9] INVALID FOR* Osteoarthritis of right knee [M17.11] INVALID FOR*06/08/2017 Osteoarthritis of left knee [M17.12] INVALID FOR*06/08/2017 More... S/P total knee replacement using cement, left [*INVALID FOR* Prescriptions ordered this encounter Disp Refills Start End LIDOCAINE 4 % TOPICAL CREAM 30 g 2 09/07/2017 09/14/2017 Route: TOPICAL Sig: Apply 1 application to affected area twice daily for 7 days. Encounter Status:Closed by ROSCOE OLEA MD on 09/07/17 PROGRESS Observed: 08/03/2017 Status: COMPLETED Source: [facility] 1:33 PM [facility] REPOSITORY HNO ID: [id number] Author: Xin Sherwood) [place] Service: (none) Author Type: Nurse Practitioner Type: Progress Notes Filed: 08/03/2017 2:03 PM Note Text: Gege Bolivar is a 67 year old who presents for her annual gynecologic exam without complaints. 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 Rides horse. Postmenopausal: Yes HRT use: No. Last Pap: 2016 normal HPV: 2016 negative History of abnormal pap: No Last mammogram: 2017 pending History of abnormal mammogram: No Sexually active: Yes Pain with intercourse: No Postcoital bleeding: No Hot flashes: No Night sweats: No Vaginal dryness: No Obstetric History T3 L3 SAB0 TAB0 Ectopic0 Multiple0 Live Births0 PAST MEDICAL HISTORY Diagnosis Date - Personal history of colonic polyps Colon polyps benign - Subarachnoid bleed (HCC) 02/2016 kicked in head by horse - Unspecified essential hypertension - Unspecified hypothyroidism PAST SURGICAL HISTORY Procedure Laterality Date - COLONOSCOPY 2005 - PAST SURGICAL HISTORY OF 2002 repair of torn ligament left knee - PAST SURGICAL HISTORY OF oral surgery for broken tooth - TOTAL KNEE REPLACEMENT Right 08/2016 - TOTAL KNEE REPLACEMENT Left 03/15/2017 - TUBAL LIGATION HX FAMILY HISTORY Problem Relation Age of Onset - Diabetes Mother late onset - Heart Mother CHF/afib - Stroke Mother - Diabetes Father late onset - Prostate Cancer Father - ovarian cancer [OTHER] Sister age 49 - Cervical Cancer Other maternal cousin - ovarian cancer [OTHER] Other maternal cousin SOCIAL HISTORY Social History Substance Use Topics - Smoking status: Never Smoker - Smokeless tobacco: Never Used - Alcohol use Yes Comment: very rarely REVIEW OF SYSTEMS Abdomen: No abdominal pain, nausea, vomiting, diarrhea, or constipation. No bloating, early satiety, indigestion, or increased flatulence. Bladder: No dysuria, gross hematuria, urinary frequency, urinary urgency, or incontinence Breast: No breast lumps, nipple d/c, overlying skin changes, redness or skin retraction Allergies and current medication updated:Yes EXAM: There were no vitals taken for this visit. GENERAL: pleasant, female in no apparent distress HEENT: Normocephalic, atraumatic, mucus membranes moist and no lesions NECK: Supple, full range of motion, no adenopathy and thyroid normal DERMATOLOGY: Normal, without lesions, non-icteric and non-hirsute BREAST: soft, non-tender, symmetric, no dominant mass, normal nipple-areolar complex, no lymphadenopathy and no nipple discharge CHEST: Normal inspiratory effort ABDOMEN: soft, non-tender and no masses PELVIC: external genitalia normal, normal Bartholin's glands, urethra, [place]'s glands, no vulvar lesions, no cervical lesions, physiologic discharge present, normal appearing perineal body and perianal region BIMANUAL: uterus normal size, shape and consistency, no adnexal masses, non-tender and no cervical motion tenderness RECTOVAGINAL: deferred. NEURO: alert and oriented x3,exam grossly non-focal EXTREMITIES: normal ASSESSMENT/PLAN: 1) Health maintenance: Pap/HPV up to date. Mammogram up to date Nutrition, exercise and routine health maintenance exams reviewed. Calcium/Vitamin D supplementation information provided. Colon cancer screening: has one for the end of this year 2) Follow up one year or sooner as needed XIN BERRY CNP [facility] Observed: 08/03/2017 Status: COMPLETED Source: [facility] 1:21 PM [facility] REPOSITORY [facility] ID: [id number] Author: Mammography Coordinator Service: (none) Author Type: Physician Type: Letter Filed: 08/04/2017 11:32 PM Note Text: August 03, 2017 PID: [id number] Gege Bolivar [address] [place] [address] Dear Ms. Bolivar, We are pleased to inform you that the results of your recent breast imaging exam on 08/03/2017 are normal. Early detection of cancer is very important. We also understand recommendations regarding breast cancer screening are controversial. Please discuss with your primary care provider which strategy is best for you and whether a mammogram is right for you. Your imaging studies and report will be kept on file at [facility] as part of your permanent medical record and are available for your continuing care. Thank you for allowing us to help in meeting your health care needs. Sincerely, Dr. Kenyon Interpreting Radiologist [facility] (Normal over 40) PROGRESS Observed: 08/03/2017 Status: COMPLETED Source: [facility] 1:10 PM [facility] REPOSITORY HNO ID: [id number] Author: Shaina Hanna Service: (none) Author Type: (none) Type: Progress Notes Filed: 08/03/2017 1:11 PM Note Text: Radiology Service Progress Note PATIENT NAME: Gege Bolivar DATE OF SERVICE: August 03, 2017 TIME: 1:11 PM PATIENT IDENTITY VERIFICATION COMPLETED USING TWO (2) METHODS: Patient confirmed name verbally and Date of . PATIENT GENDER DATA: Female. status: : No status: NO. PATIENT RELEVANT IMPLANT DATA REVIEWED: Not Applicable RADIOLOGY DEPARTMENT: [facility] IV DATA: Not applicable SIGNED BY: Shaina Hanna August 03, 2017 1:11 PM DANILO DIG SCREEN CAD Observed: 08/03/2017 Status: F Source: [facility] 1:06 PM [facility] REPOSITORY * * *Final Report* * * DATE OF EXAM: Aug 03 2017 1:06PM [facility] [id number] - [facility] DIG SCREEN CAD KALYN - BILATERAL / PROCEDURE REASON: Encounter for screening mammogram for malignant neoplasm of breast * * * * Physician Interpretation * * * * RESULT: #[id number] - [facility] DIG SCREEN CAD KALYN BILATERAL DIGITAL SCREENING MAMMOGRAM WITH CAD: 08/03/2017 HISTORY: Encounter For Screening Mammogram For Malignant Neoplasm Of Breast\ Screening Mammogram - patient reports NO breast symptoms /priors available for comparison. RESULT: TECHNIQUE: The study was acquired using full field digital technology and interpreted from soft copy. Current study was also evaluated with a Computer Aided Detection (CAD). Comparison is made to exams dated: 07/30/2016 mammogram and 06/19/2015 mammogram - [facility]. There are scattered fibroglandular elements in both breasts. No significant masses, calcifications, or other findings are seen in either breast. There has been no significant interval change. IMPRESSION: NEGATIVE There is no mammographic evidence of malignancy.A 1 year screening mammogram is recommended. Inna Kenyon M.D. pt/kit:08/03/2017 13:21:12 Machine Maintenance Technician: Shaina MONTEZ (R)), [facility] [employer] letter sent: Normal over 40 Mammogram BI-RADS: 1 Negative [place] Operator: Kit Transcribe Date/Time: Aug 03 2017 1:08P Dictated by: INNA KENYON MD This examination was interpreted and the report reviewed and electronically signed by: INNA KENYON MD on Aug 03 2017 1:21PM EST CNOV Observed: 08/03/2017 Status: COMPLETED Source: [facility] 1:00 PM [facility] REPOSITORY Office Visit (WOOB) GEGE BOLIVAR ([id number]) 1950 F Date Time Provider Department 08/03/17 1:00 PM XIN BERRY (FABIANA) WOOB During your visit today, we recorded the following information about you: Blood pressure Weight Height 118/66 82.1 kg 1.664 m XIN BERRY CNP 08/03/2017 2:03 PM Signed Gege Montez Katt is a 67 year old who presents for her annual gynecologic exam without complaints. 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 Rides horse. Postmenopausal: Yes HRT use: No. Last Pap: 2017 normal HPV: 2017 negative History of abnormal pap: No Last mammogram: 2018 pending History of abnormal mammogram: No Sexually active: Yes Pain with intercourse: No Postcoital bleeding: No Hot flashes: No Night sweats: No Vaginal dryness: No Obstetric History T3 L3 SAB0 TAB0 Ectopic0 Multiple0 Live Births0 PAST MEDICAL HISTORY Diagnosis Date - Personal history of colonic polyps Colon polyps benign - Subarachnoid bleed (HCC) 02/2016 kicked in head by horse - Unspecified essential hypertension - Unspecified hypothyroidism PAST SURGICAL HISTORY Procedure Laterality Date - COLONOSCOPY 2006 - PAST SURGICAL HISTORY OF 2002 repair of torn ligament left knee - PAST SURGICAL HISTORY OF oral surgery for broken tooth - TOTAL KNEE REPLACEMENT Right 08/2016 - TOTAL KNEE REPLACEMENT Left 03/15/2017 - TUBAL LIGATION HX FAMILY HISTORY Problem Relation Age of Onset - Diabetes Mother late onset - Heart Mother CHF/afib - Stroke Mother - Diabetes Father late onset - Prostate Cancer Father - ovarian cancer [OTHER] Sister age 49 - Cervical Cancer Other maternal cousin - ovarian cancer [OTHER] Other maternal cousin SOCIAL HISTORY Social History Substance Use Topics - Smoking status: Never Smoker - Smokeless tobacco: Never Used - Alcohol use Yes Comment: very rarely REVIEW OF SYSTEMS Abdomen: No abdominal pain, nausea, vomiting, diarrhea, or constipation. No bloating, early satiety, indigestion, or increased flatulence. Bladder: No dysuria, gross hematuria, urinary frequency, urinary urgency, or incontinence Breast: No breast lumps, nipple d/c, overlying skin changes, redness or skin retraction Allergies and current medication updated:Yes EXAM: There were no vitals taken for this visit. GENERAL: pleasant, female in no apparent distress HEENT: Normocephalic, atraumatic, mucus membranes moist and no lesions NECK: Supple, full range of motion, no adenopathy and thyroid normal DERMATOLOGY: Normal, without lesions, non-icteric and non-hirsute BREAST: soft, non-tender, symmetric, no dominant mass, normal nipple-areolar complex, no lymphadenopathy and no nipple discharge CHEST: Normal inspiratory effort ABDOMEN: soft, non-tender and no masses PELVIC: external genitalia normal, normal Bartholin's glands, urethra, [place]'s glands, no vulvar lesions, no cervical lesions, physiologic discharge present, normal appearing perineal body and perianal region BIMANUAL: uterus normal size, shape and consistency, no adnexal masses, non-tender and no cervical motion tenderness RECTOVAGINAL: deferred. NEURO: alert and oriented x3,exam grossly non-focal EXTREMITIES: normal ASSESSMENT/PLAN: 1) Health maintenance: Pap/HPV up to date. Mammogram up to date Nutrition, exercise and routine health maintenance exams reviewed. Calcium/Vitamin D supplementation information provided. Colon cancer screening: has one for the end of this year 2) Follow up one year or sooner as needed XIN BERRY CNP Referring Provider: SELF [200] Allergies As of Date: 08/03/2017 Noted Allergy Reaction BEES 12/19/2008 10 - Anaphylaxis PINE TREES (TREES) 12/19/2008 2 - Rash Comments: sap from pine trees Date Reviewed: 08/03/2017 Reviewed by: Xin Sherwood) [place] - Fully Assessed Reason for Visit: Yearly Exam With Mammogram [188] Visit Diagnoses:Encounter for gynecological examination (general) (routine) without abnormal findings [Z01.419] Encounter for screening mammogram for breast cancer [Z12.31] Order(s):[facility] SCREENING [[id number]] Order #: [id number] FUTURE Prescriptions as of 08/03/2017 Sig: ASCORBIC ACID (VITAMIN C) 500* Take 1 tablet by mouth twice * LEVOTHYROXINE 25 MCG TABLET Take 37.5 mcg by mouth daily * ACETAMINOPHEN 500 MG TABLET Take 2 tablets by mouth every* Patient taking differently: Take 1,000 mg by mouth every * DOCUSATE SODIUM 100 MG CAPSULE Take 1 capsule by mouth twice* CHOLECALCIFEROL (VITAMIN D3) * Take 1,000 Units by mouth onc* ERGOCALCIFEROL (VITAMIN D2) 5* Take 50,000 Units by mouth on* LISINOPRIL 20 MG TABLET Take 40 mg by mouth once jose* MAGNESIUM 200 MG TABLET Take 250 mg by mouth once mary jane* ONE-A-DAY WOMENS FORMULA ORAL Take 1 tablet by mouth once d* KLOR-CON M20 ORAL Take 1 tablet by mouth twice * CITRACAL ORAL Take 1 tablet by mouth twice * CETIRIZINE 10 MG CAPSULE Take 10 mg by mouth once jose* EPINEPHRINE 0.3 MG/0.3 ML INJ* Inject 0.3 mL subcutaneously * Problem List As Of Date 08/03/2017 Noted Resolved Primary osteoarthritis of right knee [M17.11] INVALID FOR*06/08/2017 HTN (hypertension) [I10] INVALID FOR* Acquired hypothyroidism [E03.9] INVALID FOR* Subarachnoid bleed (HCC) [I60.9] INVALID FOR* Osteoarthritis of right knee [M17.11] INVALID FOR*06/08/2017 Osteoarthritis of left knee [M17.12] INVALID FOR*06/08/2017 More... S/P total knee replacement using cement, left [*INVALID FOR* Medications Discontinued During This Encounter Amoxicillin 500 mg tablet 4 ta* 2 02/18/2017 08/03/2017 Sig: Take 4 tablets 1 hour prior to dental procedure Patient not taking: Reported on 08/03/2017 Disc: Reason for discontinue is not on file. docusate sodium (COLACE) 100 mg caps* 0 03/17/2017 08/03/2017 Class: OTC Route: ORAL Sig: Take 1 capsule by mouth twice daily. Patient not taking: Reported on 08/03/2017 Disc: Reason for discontinue is not on file. ferrous sulfate 325 mg (65 mg iron) * 0 09/30/2016 08/03/2017 Class: OTC Route: ORAL Sig: Take 1 tablet by mouth twice daily with meals. Patient not taking: Reported on 08/03/2017 Disc: Reason for discontinue is not on file. ferrous sulfate 325 mg (65 mg iron) * 0 03/17/2017 08/03/2017 Class: OTC Route: ORAL Sig: Take 1 tablet by mouth twice daily with meals. Patient not taking: Reported on 08/03/2017 Disc: Reason for discontinue is not on file. meloxicam (MOBIC) 15 mg tablet 30 t* 2 04/27/2017 08/03/2017 Route: ORAL Sig: Take 1 tablet by mouth once daily. Patient not taking: Reported on 08/03/2017 Disc: Reason for discontinue is not on file. ondansetron (ZOFRAN) 4 mg tablet 30 t* 0 10/02/2016 08/03/2017 Route: ORAL Sig: Take 1 tablet by mouth every 8 hours as needed. Patient not taking: Reported on 08/03/2017 Disc: Reason for discontinue is not on file. ondansetron (ZOFRAN) 4 mg tablet 50 t* 0 03/17/2017 08/03/2017 Route: ORAL Sig: Take 1 tablet by mouth every 6 hours as needed. Patient not taking: Reported on 08/03/2017 Disc: Reason for discontinue is not on file. oxyCODONE IR (ROXICODONE) 5 mg immed* 60 t* 0 03/31/2017 08/03/2017 Class: Print RX Cmt: Patient underwent major orthopedic surgery Route: ORAL Sig: Take 1-2 tablets by mouth every 4 hours as needed. Patient not taking: Reported on 08/03/2017 Disc: Reason for discontinue is not on file. Disposition: Return in 1 year (on 08/03/2018) for Annual Exam. Follow-up and Disposition History Recorded Encounter Status:Closed by XIN BERRY on 08/03/17 PT D/C SUMMARY (1) Observed: 06/25/2017 Status: F Source: [facility] 11:03 AM REPOSITORY [facility] [address] [place], [place] [id number] Fax REHABILITATION SERVICES DISCHARGE SUMMARY MR#: [id number] Acct: [id number] Name: GEGE BOLIVAR Rep #: [id number] : 1950 66 From: Tameka Bal DPT Referring Dr.: OUT OF [facility] DOCTOR Status: REG RCR Insurance: MEDICARE PART A B ANTHEM HP - PT D/C Summary It has been my pleasure to treat GEGE BOLIVAR under orders from Out [facility] Doctor, JANE GALLOWAY for the diagnosis of Left TKR for a total of 17 visit(s). Discharge Date: Please see the following information for a summary of their discharge status. - Subjective Subjective: Patient reports the knee is good most of the time but it gets stiff and painful sometimes. Has decreased endurance and standing time. Is back on her horse and can ride. She is still challenged by carrying 5 lb buckets. Patient feels that she is 85-90% She feels very functional for her standards. She has decreased pain. - Objective Objective/Function: Posture: FH, RS. Gait: slightly antalgic- decreased stance on the LE. Stairs: asc/desc 8 recip with 1 HR. HR/TR: WNL. SLS: 10 sec without UE A. Strength: 5/5 in LE - Goals Goal 1:: Patient will be I with HEP and progression Goal Progress: Goal Met Goal 2:: Patient will demo 0-120 degrees of ROM Goal Progress: Goal Met Goal 3:: Patient will demo 5/5 strength Goal Progress: Goal Met Goal 4:: Patient will ambulate >300 feet with a normalized gait pattern and LRD Goal Progress: Progressing Goal 5:: Patient will asc/desc 8 recip with 1 HR and controlled descent Goal Progress: Goal Met - Plan Plan: Discharge to I HEP- plans to work with [place] the personal care worker. - D/C Information If there are questions or concerns regarding this patient's physical therapy, please feel free to call me at [phone]. Thank you for the referral of this patient. Sincerely, Tameka Bal <Electronically signed by Tameka Bal DPT> 06/25/17 1103 CC: JANE GALLOWAY; OUT OF TOWN DOCTOR; Jake Epstein MD ELR Signed ALLERGIES ALLERGIES DATE TYPE / CODE NAME / CODE REACTION SEVERITY SOURCE 06/02/2018 Drug propoxyphene Nausea/Vom/Diarrhe Unknown [facility] Allergy/416 /[id number]( [facility] [id number](SNOM RXNORM) Repository ED CT) 06/02/2018 Drug acetaminophe Nausea/Vom/Diarrhe Unknown [facility] Allergy/416 n/[id number] [facility] 153840(SNOM (RXNORM) Repository ED CT) 06/02/2018 Drug venom-honey Anaphylaxis Unknown [facility] Allergy/416 bee/[id number] Hospital 184400(SNOM 98(RXNORM) Repository ED CT) 12/19/2008 Environ/420 BEES ANAPHYLAXIS High [facility] [id number]([facility] ED CT) Repository 12/19/2008 Environ/420 TREES RASH [facility] [id number]([facility] ED CT) Repository ENCOUNTERS ENCOUNTERS ADMIT/DISCHARGE ACCOUNT NUMBER ADMITTING ENCOUNTER LOCATION SOURCE CLASS 06/16/[id number] [facility] ding:MASS Repository 06/06/2018 [id number] Ambulatory BBuilding:[facility] Repository 06/02/2018/06/02/19 [id number] Ambulatory BMSBuilding: [place] [address] [place] [address] Repository 05/11/[id number] [facility] ding:LAB.FUT Repository URE 03/08/2018/03/10/20 [id number] Ambulatory [address] Repository 03/08/2018/03/08/20 [id number] Ambulatory [address] Repository 03/07/[id number] [facility] ding:MTLAB Repository 09/07/2017/09/10/19 [id number] Ambulatory [address] Repository 09/07/2017/09/08/19 [id number] Ambulatory [address] Repository 08/03/2017/08/06/19 [id number] Ambulatory [address] Repository 08/03/2017/08/04/19 [id number] Ambulatory [address] Repository 06/25/2017/06/25/19 [id number] Ambulatory [address] ding:PT Repository PAYERS PAYERS ENCOUNTER GUARANTOR PAYER SUBSCRIBER SOURCE 06/16/2018 [facility]NE [facility]ovea [id number] Insurance:SELF PAY [place], [place] Number: Effective Repository [id number]: 330) Date:2016-07-31 [phone] () 06/06/2018 [facility] [id number] [address] Number: [id number] [place] Date:2005-03-24 26883Ugg: [phone] [phone] Name:KATHYA REEVES ()Tel: [phone] [phone] () 725[address]WP: 06/02/2018 GEGE L Primary GEGE L Dara [id number] E Insurance:MEDICARE [facility] [id number] Number: Repository [id number]: 330 [id number] [phone] () Date:2018-06-02 06/02/2018 Secondary GEGE L Dara Insurance:ANTHEMPolic [place]ER[place]ARDTDOB: Community y Number: [id number] [id number] Repository Date:[id number], [place] [address]BW: 06/02/2018 Tertiary NOT GIVENUNK Dara Insurance:SELF PAY [facility] Number: Effective Repository Date:2018-06-02 05/11/2018 HANANE Govea Primary GEGE L Dara [id number] E Insurance:MEDICARE BERNHARDTDOB: Community IZABELA PART A [facility] [id number], [place] Number: Repository [id number]: 330 [id number] [phone] () Date:2017-11-17 05/11/2018 Secondary GEGE L Dara Insurance:ANTHEMPolic BERNHARDTDOB: Community y Number: [id number] [id number] Repository Date:[id number] [address] [place] [address]OT: 05/11/2018 Tertiary NOT GIVENUNK Dara Insurance:SELF PAY [facility] Number: Effective Repository Date:2017-11-17 03/07/2018 HANANE Govea Primary GEGE L [place] [id number] E Insurance:MEDICARE BERNHARDTDOB: Community [facility] PART A [facility] [id number], [place] Number: Repository [id number]: 330 [id number] [phone] () Date:2018-03-07 03/07/2018 Secondary GEGE L Dara Insurance:ANTHEMPolic BERNHARDTDOB: Community y Number: [id number] [id number] Repository Date:[id number] [address] [place] [address]EP: 03/07/2018 Tertiary NOT GIVENUNK Dara Insurance:SELF PAY [facility] Number: Effective Repository Date:2018-03-07 06/25/2017 Hanane Govea Primary GEGE L [place] [id number] E Insurance:MEDICARE BERNHARDTDOB: Community [place] PART A [facility] [id number] [place] Number: Repository [id number]: [id number] [phone] Date:2016-06-24 -4 () 06/25/2017 Secondary GEGE Diamond Insurance:[facility] ABIEL: Community y Number: [id number] [id number] Repository Date:[id number] [address], [place] [address]OW: 06/25/2017 Tertiary NOT GIVENUNK Dara Insurance:SELF PAY [facility]: Effective Repository Date:2017-04-09
== END ==
LOC: POLAB3 11-17 14:12 → LAB.FUTURE 09:44
PROVIDERS: Family Provider Family Medicine Geriatric Medicine; PCP Family Medicine Geriatric Medicine; Visit Provider Family Medicine Geriatric Medicine
DX: E55.9 Vitamin D deficiency, unspecified (principal); I10 Essential (primary) hypertension
CPT/HCPCS: 36415; 80053; 82306; 84443; 85025

== ENCOUNTER → 2018-10-06 10:17 | Outpatient (CLI) | payer MEDICARE, BC, SELFPAY ==
[2018-06-02 13:12] VITALS: BMI 27.4
[2018-10-06 12:51] LABS: ALB/GLOB Ratio 1.1 RATIO (0.9-2.4); AST(SGOT) 27 U/L (15-37); Alanine Aminotransfer ALT/SGPT 33 U/L (13-56); Albumin, Serum 3.5 g/dL (3.2-5.0); Alkaline Phosphatase 87 U/L (45-117); Anion Gap 6 (5-15); BUN 11 mg/dL (7-18); BUN/Creat Ratio 17.3 RATIO (10-20); Calcium,Total 8.5 mg/dL (8.5-10.1); Chloride 107 mmol/L (98-107); Creatinine, Serum 0.64 mg/dL (0.55-1.02); EST Glomerular Filtration Rate 99 mL/min (>60); Est Glom Filt Rate - Afr Amer 120 mL/min (>60); Free T3 2.3 pg/mL (2.18-3.98); Globulin 3.1 g/dL (2.2-4.2); Glucose 78 mg/dL (74-106); Magnesium 2.3 mg/dL (1.6-2.6); Potassium 3.4 mmol/L (3.5-5.1); Protein, Total 6.6 g/dL (6.4-8.2); Sodium Level 144 mmol/L (136-145); Thyroid Stim Hormone (TSH) 0.67 uIU/mL (0.358-3.74)
[2018-10-06 12:53] LABS: Vitamin D,25 Hydroxy 86.2 ng/mL (29.95-100.01)
== END ==
PROVIDERS: Family Provider Family Medicine Geriatric Medicine; PCP Family Medicine Geriatric Medicine; Referring Provider Internal Medicine Endocrinology, Diabetes & Metabolism; Visit Provider Internal Medicine Endocrinology, Diabetes & Metabolism
DX: E03.8 Other specified hypothyroidism (principal); E55.9 Vitamin D deficiency, unspecified
CPT/HCPCS: 36415; 80053; 82306; 83735; 84443; 84481

== ENCOUNTER → 2018-11-09 | Outpatient (CLI) | payer MEDICARE, BC, SELFPAY ==
[2018-06-02 13:12] VITALS: BMI 27.4
[2018-11-09 12:38] LABS: Absolute Lymphocyte Count 1.05 X10^3/ul (0.83-4.51); Absolute Neutrophil Count 3.6 X10^3/uL (2.0-7.7); Basophil# 0.03 X10^3/uL; Basophil% 0.5 % (0-1); Eosinophils% 3.6 % (0-5); Hematocrit 46.3 % (37-47); Hemoglobin 15.2 g/dl (12.0-15.0); Lymphocyte # 1.05 X10^3/ul (4.0); Lymphocyte % 18.8 % (19-41); Mean Corp Hgb Conc 32.8 g/gl (32-36); Mean Corpuscular Volume 88.4 fL (81-99); Mean Platelet Vol. 12.9 fl (6.2-12.0); Monocyte# 0.71 X10^3/uL; Monocyte% 12.7 % (0-10); Neutrophil % 64.2 % (47-70); Platelet Count 156 K/mm3 (150-450); RBC Distribution Width CV 13.6 % (11.6-14.6); RBC Distribution Width SD 43.8 fl (35.1-43.9); Red Blood Count 5.24 M/mm3 (4.2-5.4); White Blood Count 5.6 K/mm3 (4.4-11.0)
[2018-11-09 12:41] LABS: POSITIVE COUNT NO; POSITIVE DIFFERENTIAL NO; POSITIVE MORPHOLOGY NO
[2018-11-09 13:03] LABS: ALB/GLOB Ratio 1.1 RATIO (0.9-2.4); AST(SGOT) 23 U/L (15-37); Alanine Aminotransfer ALT/SGPT 27 U/L (13-56); Albumin, Serum 3.5 g/dL (3.2-5.0); Alkaline Phosphatase 94 U/L (45-117); Anion Gap 8 (5-15); BUN 15 mg/dL (7-18); BUN/Creat Ratio 19.2 RATIO (10-20); Calcium,Total 9.1 mg/dL (8.5-10.1); Chloride 105 mmol/L (98-107); Creatinine, Serum 0.78 mg/dL (0.55-1.02); EST Glomerular Filtration Rate 78 mL/min (>60); Est Glom Filt Rate - Afr Amer 94 mL/min (>60); Globulin 3.3 g/dL (2.2-4.2); Glucose 119 mg/dL (74-106); Protein, Total 6.8 g/dL (6.4-8.2); Sodium Level 141 mmol/L (136-145); Thyroid Stim Hormone (TSH) 0.82 uIU/mL (0.358-3.74)
[2018-11-09 13:04] LABS: Vitamin D,25 Hydroxy 79.7 ng/mL (29.95-100.01)
== END | disposition home or self-care (01) ==
LOC: POLAB3 10:31
PROVIDERS: Family Provider Family Medicine Geriatric Medicine; PCP Family Medicine Geriatric Medicine; Visit Provider Family Medicine Geriatric Medicine
DX: E55.9 Vitamin D deficiency, unspecified (principal); I10 Essential (primary) hypertension
CPT/HCPCS: 36415; 80053; 82306; 84443; 85025

== ENCOUNTER → 2019-05-31 10:28 | Outpatient (CLI) | payer BC, MEDICARE, SELFPAY ==
[2018-06-02 13:12] VITALS: BMI 27.4
[2019-05-31 11:50] LABS: Absolute Lymphocyte Count 0.95 X10^3/uL (0.83-4.51); Absolute Neutrophil Count 2.3 X10^3/uL (2.0-7.7); Basophil# 0.04 X10^3/uL; Eosinophil# 0.25 X10^3/uL; Eosinophils% 6.1 % (0-5); Hematocrit 44.5 % (37-47); Hemoglobin 14.7 g/dL (12.0-15.0); Lymphocyte # 0.95 X10^3/ul (4.0); Mean Corpuscular Hgb 29.5 pg (27.0-32.0); Mean Corpuscular Volume 89.2 fL (81-99); Mean Platelet Vol. 12.2 fl (6.2-12.0); Monocyte# 0.59 X10^3/uL; Monocyte% 14.3 % (0-10); NRBC Flagged by Analyzer 0 % (0-5); Neutrophil # 2.29 X10^3/uL (2.7-7.7); Neutrophil % 55.4 % (47-70); Platelet Count 146 K/mm3 (150-450); RBC Distribution Width CV 12.7 % (11.6-14.6); RBC Distribution Width SD 41.3 fl (35.1-43.9); Red Blood Count 4.99 M/mm3 (4.2-5.4); White Blood Count 4.1 K/mm3 (4.4-11.0)
[2019-05-31 12:07] LABS: Vitamin D,25 Hydroxy 102.5 ng/mL (29.95-100.01)
[2019-05-31 12:13] LABS: ALB/GLOB Ratio 1.1 RATIO (0.9-2.4); AST(SGOT) 30 U/L (15-37); Alanine Aminotransfer ALT/SGPT 44 U/L (13-56); Alkaline Phosphatase 95 U/L (45-117); Anion Gap 6 (5-15); BUN 13 mg/dL (7-18); BUN/Creat Ratio 18.3 RATIO (10-20); Calcium,Total 8.7 mg/dL (8.5-10.1); Chloride 104 mmol/L (98-107); Creatinine, Serum 0.71 mg/dL (0.55-1.02); EST Glomerular Filtration Rate 87 mL/min (>60); Est Glom Filt Rate - Afr Amer 105 mL/min (>60); Globulin 3.5 g/dL (2.2-4.2); Glucose 96 mg/dL (74-106); Protein, Total 7.5 g/dL (6.4-8.2); Sodium Level 141 mmol/L (136-145); Thyroid Stim Hormone (TSH) 0.68 uIU/mL (0.358-3.74)
== END ==
PROVIDERS: Family Provider Family Medicine Geriatric Medicine; PCP Family Medicine Geriatric Medicine; Visit Provider Family Medicine Geriatric Medicine
DX: I10 Essential (primary) hypertension (principal); E55.9 Vitamin D deficiency, unspecified
CPT/HCPCS: 36415; 80053; 82306; 84443; 85025

== ENCOUNTER → 2019-11-29 10:56 | Outpatient (CLI) | payer MEDICARE, SELFPAY ==
[2018-06-02 13:12] VITALS: BMI 27.4
[2019-11-29 12:33] LABS: Absolute Lymphocyte Count 1.04 X10^3/uL (0.83-4.51); Absolute Neutrophil Count 3.3 X10^3/uL (2.0-7.7); Basophil# 0.05 X10^3/uL; Basophil% 0.9 % (0-1); Eosinophil# 0.29 X10^3/uL; Eosinophils% 5.4 % (0-5); Hematocrit 42.9 % (37-47); Hemoglobin 14.1 g/dL (12.0-15.0); Lymphocyte # 1.04 X10^3/ul (4.0); Lymphocyte % 19.4 % (19-41); Mean Corp Hgb Conc 32.9 g/dL (32-36); Mean Corpuscular Hgb 30.3 pg (27.0-32.0); Mean Corpuscular Volume 92.3 fL (81-99); Mean Platelet Vol. 11.8 fl (6.2-12.0); Monocyte# 0.63 X10^3/uL; Monocyte% 11.8 % (0-10); NRBC Flagged by Analyzer 0 % (0-5); Neutrophil # 3.33 X10^3/uL (2.7-7.7); Neutrophil % 62.3 % (47-70); Platelet Count 150 K/mm3 (150-450); RBC Distribution Width CV 13.4 % (11.6-14.6); Red Blood Count 4.65 M/mm3 (4.2-5.4); White Blood Count 5.4 K/mm3 (4.4-11.0)
[2019-11-29 12:52] LABS: Vitamin D,25 Hydroxy 72.6 ng/mL
[2019-11-29 12:54] LABS: AST(SGOT) 16 U/L (15-37); Alanine Aminotransfer ALT/SGPT 23 U/L (13-56); Albumin, Serum 3.7 g/dL (3.2-5.0); Alkaline Phosphatase 90 U/L (45-117); Anion Gap 6 (5-15); BUN 12 mg/dL (7-18); BUN/Creat Ratio 17.3 RATIO (10-20); Calcium,Total 8.4 mg/dL (8.5-10.1); Chloride 104 mmol/L (98-107); EST Glomerular Filtration Rate 89 mL/min (>60); Est Glom Filt Rate - Afr Amer 108 mL/min (>60); Globulin 3.6 g/dL (2.2-4.2); Glucose 116 mg/dL (74-106); Potassium 3.3 mmol/L (3.5-5.1); Protein, Total 7.3 g/dL (6.4-8.2); Sodium Level 140 mmol/L (136-145); Thyroid Stim Hormone (TSH) 0.56 uIU/mL (0.358-3.74)
== END ==
PROVIDERS: PCP Family Medicine Geriatric Medicine; Visit Provider Family Medicine Geriatric Medicine
DX: I10 Essential (primary) hypertension (principal); E55.9 Vitamin D deficiency, unspecified
CPT/HCPCS: 36415; 80053; 82306; 84443; 85025

== ENCOUNTER → 2019-12-13 13:12 | Outpatient (CLI) | payer MEDICARE, SELFPAY ==
[2018-06-02 13:12] VITALS: BMI 27.4
[2019-12-13 15:08] LABS: Anion Gap 4 (5-15); BUN 17 mg/dL (7-18); BUN/Creat Ratio 20.1 RATIO (10-20); Calcium,Total 8.5 mg/dL (8.5-10.1); Chloride 107 mmol/L (98-107); Creatinine, Serum 0.84 mg/dL (0.55-1.02); EST Glomerular Filtration Rate 71 mL/min (>60); Est Glom Filt Rate - Afr Amer 86 mL/min (>60); Glucose 134 mg/dL (74-106); Potassium 3.7 mmol/L (3.5-5.1); Sodium Level 141 mmol/L (136-145)
== END ==
PROVIDERS: PCP Family Medicine Geriatric Medicine; Visit Provider Family Medicine Geriatric Medicine
DX: E87.6 Hypokalemia (principal)
CPT/HCPCS: 36415; 80048

== ENCOUNTER → 2020-06-05 09:27 | Outpatient (CLI) | payer MEDICARE, SELFPAY ==
[2018-06-02 13:12] VITALS: BMI 27.4
[2020-06-05 12:12] LABS: Absolute Lymphocyte Count 1.38 X10^3/uL (0.83-4.51); Absolute Neutrophil Count 3.7 X10^3/uL (2.0-7.7); Basophil# 0.06 X10^3/uL; Eosinophil# 0.29 X10^3/uL; Eosinophils% 4.7 % (0-5); Hemoglobin 15.6 g/dL (12.0-15.0); Lymphocyte # 1.38 X10^3/ul (4.0); Lymphocyte % 22.2 % (19-41); Mean Corp Hgb Conc 33.2 g/dL (32-36); Mean Corpuscular Hgb 29.7 pg (27.0-32.0); Mean Corpuscular Volume 89.5 fL (81-99); Mean Platelet Vol. 11.9 fl (6.2-12.0); Monocyte# 0.84 X10^3/uL; Monocyte% 13.5 % (0-10); NRBC Flagged by Analyzer 0 % (0-5); Neutrophil # 3.65 X10^3/uL (2.7-7.7); Neutrophil % 58.4 % (47-70); Platelet Count 192 K/mm3 (150-450); RBC Distribution Width SD 42.5 fl (35.1-43.9); Red Blood Count 5.25 M/mm3 (4.2-5.4); White Blood Count 6.2 K/mm3 (4.4-11.0)
[2020-06-05 12:40] LABS: ALB/GLOB Ratio 1.1 RATIO (0.9-2.4); AST(SGOT) 22 U/L (15-37); Alanine Aminotransfer ALT/SGPT 25 U/L (13-56); Albumin, Serum 3.9 g/dL (3.2-5.0); Alkaline Phosphatase 100 U/L (45-117); Anion Gap 5 (5-15); BUN 12 mg/dL (7-18); BUN/Creat Ratio 13.9 RATIO (10-20); Calcium,Total 9.2 mg/dL (8.5-10.1); Chloride 103 mmol/L (98-107); Creatinine, Serum 0.86 mg/dL (0.55-1.02); EST Glomerular Filtration Rate 69 mL/min (>60); Est Glom Filt Rate - Afr Amer 84 mL/min (>60); Globulin 3.6 g/dL (2.2-4.2); Glucose 107 mg/dL (74-106); Potassium 3.5 mmol/L (3.5-5.1); Protein, Total 7.5 g/dL (6.4-8.2); Sodium Level 139 mmol/L (136-145); Thyroid Stim Hormone (TSH) 0.56 uIU/mL (0.358-3.74)
[2020-06-05 12:44] LABS: Vitamin D,25 Hydroxy 36.3 ng/mL
== END ==
PROVIDERS: PCP Family Medicine Geriatric Medicine; Visit Provider Family Medicine Geriatric Medicine
DX: I10 Essential (primary) hypertension (principal); E55.9 Vitamin D deficiency, unspecified
CPT/HCPCS: 36415; 80053; 82306; 84443; 85025

== ENCOUNTER 2020-07-25 16:15 | Outpatient (RCR) | payer MEDICARE, OTHER, SELFPAY ==
[2018-06-02 13:12] VITALS: BMI 27.4
[2020-07-25] MEDS: COVID-19 VACC, MRNA(PFIZER)/PF 30 MCG/0.3 ML SYRINGE IM (18:19)
[2020-08-15] MEDS: COVID-19 VACC, MRNA(PFIZER)/PF 30 MCG/0.3 ML SYRINGE IM (17:51)
== END 2020-07-25 23:59 ==
LOC: IMMUN 16:15
PROVIDERS: PCP Family Medicine Geriatric Medicine; Referring Provider Family Medicine; Visit Provider Family Medicine
DX: Z23 Encounter for immunization (principal)
CPT/HCPCS: 0001A; 0002A; 91300

== ENCOUNTER 2020-11-11 13:31 | Outpatient (RCR) | payer SELFPAY ==
[2018-06-02 13:12] VITALS: BMI 27.4
== END 2020-11-20 23:59 ==
LOC: NS 13:31
PROVIDERS: PCP Family Medicine Geriatric Medicine
DX: Z71.3 Dietary counseling and surveillance (principal); Z68.31 Body mass index [BMI] 31.0-31.9, adult
CPT/HCPCS: 97802

== ENCOUNTER → 2020-12-04 09:29 | Outpatient (CLI) | payer MEDICARE, SELFPAY ==
[2018-06-02 13:12] VITALS: BMI 27.4
[2020-12-04 12:22] LABS: Absolute Lymphocyte Count 1.31 X10^3/uL (0.83-4.51); Absolute Neutrophil Count 3.5 X10^3/uL (2.0-7.7); Basophil# 0.04 X10^3/uL; Basophil% 0.7 % (0-1); Eosinophil# 0.33 X10^3/uL; Eosinophils% 5.6 % (0-5); Hematocrit 43.9 % (37-47); Hemoglobin 14.5 g/dL (12.0-15.0); Lymphocyte # 1.31 X10^3/ul (0.83-4.51); Lymphocyte % 22.1 % (19-41); Mean Corpuscular Hgb 29.4 pg (27.0-32.0); Mean Platelet Vol. 11.5 fl (6.2-12.0); Monocyte# 0.77 X10^3/uL; NRBC Flagged by Analyzer 0 % (0-5); Neutrophil # 3.47 X10^3/uL (2.7-7.7); Neutrophil % 58.3 % (47-70); Platelet Count 193 K/mm3 (150-450); RBC Distribution Width CV 13.4 % (11.6-14.6); RBC Distribution Width SD 43.6 fl (35.1-43.9); Red Blood Count 4.93 M/mm3 (4.2-5.4); White Blood Count 5.9 K/mm3 (4.4-11.0)
[2020-12-04 12:54] LABS: ALB/GLOB Ratio 1.1 RATIO (0.9-2.4); AST(SGOT) 20 U/L (15-37); Alanine Aminotransfer ALT/SGPT 28 U/L (13-56); Albumin, Serum 3.6 g/dL (3.2-5.0); Alkaline Phosphatase 96 U/L (45-117); Anion Gap 6 (5-15); BUN 12 mg/dL (7-18); BUN/Creat Ratio 16.6 RATIO (10-20); Calcium,Total 8.9 mg/dL (8.5-10.1); Chloride 104 mmol/L (98-107); Creatinine, Serum 0.72 mg/dL (0.55-1.02); EST Glomerular Filtration Rate 85 mL/min (>60); Est Glom Filt Rate - Afr Amer 103 mL/min (>60); Globulin 3.3 g/dL (2.2-4.2); Glucose 108 mg/dL (74-106); Potassium 3.5 mmol/L (3.5-5.1); Protein, Total 6.9 g/dL (6.4-8.2); Sodium Level 140 mmol/L (136-145); Thyroid Stim Hormone (TSH) 0.63 uIU/mL (0.358-3.74)
[2020-12-04 13:41] LABS: Vitamin D,25 Hydroxy 82.8 ng/mL
== END ==
PROVIDERS: PCP Family Medicine Geriatric Medicine; Visit Provider Family Medicine Geriatric Medicine
DX: I10 Essential (primary) hypertension (principal); E55.9 Vitamin D deficiency, unspecified
CPT/HCPCS: 36415; 80053; 82306; 84443; 85025

== ENCOUNTER 2020-12-17 11:30 | Outpatient (RCR) | payer SELFPAY ==
[2018-06-02 13:12] VITALS: BMI 27.4
== END 2020-12-21 23:59 ==
LOC: NS 11:30
PROVIDERS: PCP Family Medicine Geriatric Medicine
DX: Z71.3 Dietary counseling and surveillance (principal); Z68.30 Body mass index [BMI] 30.0-30.9, adult
CPT/HCPCS: 97803

== ENCOUNTER 2021-01-07 09:28 | Outpatient (RCR) | payer SELFPAY ==
[2018-06-02 13:12] VITALS: BMI 27.4
== END 2021-01-21 23:59 ==
LOC: NS 09:28
PROVIDERS: PCP Family Medicine Geriatric Medicine
DX: Z71.3 Dietary counseling and surveillance (principal); E66.8 Other obesity; Z68.30 Body mass index [BMI] 30.0-30.9, adult
CPT/HCPCS: 97803

== ENCOUNTER 2021-03-25 08:34 | Outpatient (RCR) | payer SELFPAY ==
[2021-01-22 00:36] VITALS: BMI 27.4
== END 2021-04-22 23:59 ==
LOC: NS 08:34
PROVIDERS: PCP Family Medicine Geriatric Medicine
DX: Z71.3 Dietary counseling and surveillance (principal); E66.8 Other obesity; Z68.30 Body mass index [BMI] 30.0-30.9, adult
CPT/HCPCS: 97803

== ENCOUNTER 2021-05-20 11:00 | Outpatient (RCR) | payer SELFPAY ==
[2021-04-23 00:04] VITALS: BMI 27.4
== END 2021-05-23 23:59 ==
LOC: NS 11:00
PROVIDERS: PCP Family Medicine Geriatric Medicine
DX: Z71.3 Dietary counseling and surveillance (principal); E66.8 Other obesity; Z68.30 Body mass index [BMI] 30.0-30.9, adult
CPT/HCPCS: 97803

== ENCOUNTER 2021-06-11 10:14 | Outpatient (CLI) | payer MEDICARE, SELFPAY ==
[2021-06-11 12:04] LABS: Absolute Lymphocyte Count 1.04 X10^3/uL (0.83-4.51); Absolute Neutrophil Count 2.5 X10^3/uL (2.0-7.7); Basophil# 0.04 X10^3/uL; Basophil% 0.9 % (0-1); Eosinophil# 0.23 X10^3/uL; Eosinophils% 5.1 % (0-5); Hematocrit 45.8 % (37-47); Hemoglobin 14.8 g/dL (12.0-15.0); Lymphocyte # 1.04 X10^3/ul (0.83-4.51); Lymphocyte % 23.2 % (19-41); Mean Corp Hgb Conc 32.3 g/dL (32-36); Mean Corpuscular Volume 89.6 fL (81-99); Mean Platelet Vol. 12.4 fl (6.2-12.0); Monocyte# 0.63 X10^3/uL; Monocyte% 14.1 % (0-10); NRBC Flagged by Analyzer 0 % (0-5); Neutrophil # 2.53 X10^3/uL (2.7-7.7); Neutrophil % 56.5 % (47-70); Platelet Count 162 K/mm3 (150-450); RBC Distribution Width CV 13.1 % (11.6-14.6); RBC Distribution Width SD 42.9 fl (35.1-43.9); Red Blood Count 5.11 M/mm3 (4.2-5.4); White Blood Count 4.5 K/mm3 (4.4-11.0)
[2021-06-11 12:22] LABS: Vitamin D,25 Hydroxy 89.7 ng/mL
[2021-06-11 12:26] LABS: AST(SGOT) 19 U/L (15-37); Alanine Aminotransfer ALT/SGPT 24 U/L (13-56); Albumin, Serum 3.7 g/dL (3.2-5.0); Alkaline Phosphatase 85 U/L (45-117); Anion Gap 6 (5-15); BUN 16 mg/dL (7-18); BUN/Creat Ratio 17.6 RATIO (10-20); Calcium,Total 9.1 mg/dL (8.5-10.1); Chloride 105 mmol/L (98-107); Creatinine, Serum 0.91 mg/dL (0.55-1.02); EST Glomerular Filtration Rate 65 mL/min (>60); Est Glom Filt Rate - Afr Amer 79 mL/min (>60); Globulin 3.6 g/dL (2.2-4.2); Glucose 112 mg/dL (74-106); Potassium 3.7 mmol/L (3.5-5.1); Protein, Total 7.3 g/dL (6.4-8.2); Sodium Level 142 mmol/L (136-145); Thyroid Stim Hormone (TSH) 1.08 uIU/mL (0.358-3.74)
== END 2021-06-11 23:59 | disposition short-term general hospital (02) ==
LOC: POLAB3 10:15
PROVIDERS: PCP Family Medicine Geriatric Medicine; Visit Provider Family Medicine Geriatric Medicine
DX: E55.9 Vitamin D deficiency, unspecified (principal); I10 Essential (primary) hypertension
CPT/HCPCS: 36415; 80053; 82306; 84443; 85025

== ENCOUNTER 2021-06-17 10:30 | Outpatient (RCR) | payer SELFPAY ==
[2021-05-24 00:09] VITALS: BMI 27.4
== END 2021-06-23 23:59 ==
LOC: NS 10:30
PROVIDERS: PCP Family Medicine Geriatric Medicine
DX: Z71.3 Dietary counseling and surveillance (principal); Z68.30 Body mass index [BMI] 30.0-30.9, adult
CPT/HCPCS: 97803

== ENCOUNTER 2021-07-14 09:30 | Outpatient (RCR) | payer SELFPAY ==
[2021-06-24 00:15] VITALS: BMI 27.4
== END 2021-07-21 23:59 ==
LOC: NS 09:30
PROVIDERS: PCP Family Medicine Geriatric Medicine
DX: Z71.3 Dietary counseling and surveillance (principal); Z68.34 Body mass index [BMI] 34.0-34.9, adult
CPT/HCPCS: 97803

== ENCOUNTER 2021-08-12 09:30 | Outpatient (RCR) | payer SELFPAY ==
[2021-07-22 00:19] VITALS: BMI 27.4
== END 2021-08-21 23:59 ==
LOC: NS 09:30
PROVIDERS: PCP Family Medicine Geriatric Medicine
DX: Z71.3 Dietary counseling and surveillance (principal); Z68.29 Body mass index [BMI] 29.0-29.9, adult
CPT/HCPCS: 97803

== ENCOUNTER 2021-08-29 08:56 | Outpatient (CLI) | payer MEDICARE, OTHER, SELFPAY ==
--- NOTE | 2021-08-29 08:59 | US_ITS ---
STUDY: ABDOMINAL ULTRASOUND - RIGHT UPPER QUADRANT REASON FOR VISIT: Female, 71 years old HYPERBILIRUBINEMIA TECHNIQUE: Ultrasound evaluation of the right upper quadrant was performed with real-time and static todd-scale imaging. TECHNICAL QUALITY: Adequate. COMPARISON: None. FINDINGS: LIVER: Length 16.4 cm. Relatively increased echogenicity. Multiple cysts, largest measures 3.1 x 2.2 x 2.6 cm. Portal vein patent. GALLBLADDER Size: Distended. Stones: No stones. 0.5 x 0.3 x 0.4 cm polyp. Wall thickness: Not thickened. 2 mm. Pericholecystic fluid: None. Sonographic Zapata sign: Negative. EXTRAHEPATIC BILE DUCTS: Common bile duct 3 mm not dilated. PANCREAS: Visualized portions unremarkable. The tail was not visualized, obscured by bowel gas. RIGHT KIDNEY: Length 11.4 cm. 2 cysts, 3.5 x 3.4 x 3.5 cm, and 1.4 x 1.3 x 1.4 cm. ASCITES: None. US/Abdomen Limited IMPRESSION: Multiple hepatic cysts. Hepatic steatosis. Gallbladder polyp. No biliary dilatation. Electronically Signed: Olga Larson MD at 22:21 EDT ,
== END 2021-08-29 23:59 | disposition home or self-care (01) ==
LOC: US 08:57
PROVIDERS: PCP Family Medicine Geriatric Medicine; Referring Provider Family Medicine Geriatric Medicine; Visit Provider Family Medicine Geriatric Medicine
DX: E80.6 Other disorders of bilirubin metabolism (principal)
CPT/HCPCS: 76705

== ENCOUNTER 2021-09-04 09:01 | Outpatient (CLI) | payer MEDICARE, OTHER, SELFPAY ==
--- NOTE | 2021-09-04 09:05 | US_ITS ---
STUDY: ABDOMINAL ULTRASOUND - ELASTOGRAPHY REASON FOR VISIT: Female, 71 years old. Fatty infiltration of the liver. TECHNIQUE: Liver stiffness measurements were obtained on a [employer] REVA RS 85 ultrasound machine using a CA 1-7 probe following the SRU guidelines. 3 measurements were obtained using a 2-D-SWE method. The IQR/M was 23% suggesting a quality data set. TECHNICAL QUALITY: Adequate. COMPARISON: Comparison is made with prior study dated 08/29/2021. FINDINGS: Liver: Fatty infiltration of the liver. Median liver stiffness measured 3.3 kPa. US/Elastography Parenchyma/Organ IMPRESSION: Liver stiffness measures 3.3 kPa compatible with FO (Normal) Metavir score. Electronically Signed: Dale Zuniga MD at 10:04 EDT ,
== END 2021-09-04 23:59 | disposition home or self-care (01) ==
LOC: US 09:02
PROVIDERS: PCP Family Medicine Geriatric Medicine; Referring Provider Family Medicine Geriatric Medicine; Visit Provider Family Medicine Geriatric Medicine
DX: K76.0 Fatty (change of) liver, not elsewhere classified (principal)
CPT/HCPCS: 76981

== ENCOUNTER 2021-09-09 08:44 | Outpatient (RCR) | payer MEDICARE, OTHER, SELFPAY ==
[2021-08-22 00:21] VITALS: BMI 27.4
== END 2021-09-20 23:59 ==
LOC: NS 08:44
PROVIDERS: PCP Family Medicine Geriatric Medicine
DX: Z71.3 Dietary counseling and surveillance (principal)
CPT/HCPCS: 97803

== ENCOUNTER → 2021-09-10 | Outpatient (CLI) | payer MEDICARE, OTHER, SELFPAY ==
--- NOTE | 2021-09-10 16:25 | RAD_ITS ---
STUDY: X-RAY - LUMBAR SPINE REASON FOR EXAM: Female, 71 years old. LOW BACK PAIN TECHNIQUE: 3 view(s) of the lumbar spine were obtained. COMPARISON: None FINDINGS: Vertebral bodies are normal in height. No definite fracture demonstrated. No subluxation. Disc space narrowing with osteophytes at essentially all levels. Facet sclerosis mainly at the lower lumbar levels. No paravertebral soft tissue mass identified. Surgical clips in the pelvis. RAD/Lumbar Spine 2 or 3 Views IMPRESSION: Degenerative changes. No evidence of fracture or subluxation. Electronically Signed: Olga Larson MD at 2:49 EDT ,
[2021-09-10 17:16] LABS: Anion Gap 4 (5-15); BUN 12 mg/dL (7-18); BUN/Creat Ratio 14.4 RATIO (10-20); Calcium,Total 9.2 mg/dL (8.5-10.1); Chloride 105 mmol/L (98-107); Creatinine, Serum 0.83 mg/dL (0.55-1.02); EST Glomerular Filtration Rate 72 mL/min (>60); Est Glom Filt Rate - Afr Amer 87 mL/min (>60); Glucose 110 mg/dL (74-106); Potassium 3.8 mmol/L (3.5-5.1); Sodium Level 140 mmol/L (136-145)
== END | disposition home or self-care (01) ==
LOC: POLAB3 16:11 → RAD 16:21
PROVIDERS: PCP Family Medicine Geriatric Medicine; Referring Provider Family Medicine Geriatric Medicine; Visit Provider Family Medicine Geriatric Medicine
DX: E87.6 Hypokalemia (principal); M54.50 Low back pain, unspecified
CPT/HCPCS: 36415; 72100; 80048

== ENCOUNTER 2021-10-14 08:59 | Outpatient (RCR) | payer MEDICARE, OTHER, SELFPAY ==
[2021-09-21 00:22] VITALS: BMI 27.4
== END 2021-10-21 23:59 ==
LOC: NS 08:59
PROVIDERS: PCP Family Medicine Geriatric Medicine
DX: Z71.3 Dietary counseling and surveillance (principal); Z68.29 Body mass index [BMI] 29.0-29.9, adult
CPT/HCPCS: 97803

== ENCOUNTER 2021-11-12 09:53 | Outpatient (RCR) | payer MEDICARE, OTHER, SELFPAY ==
[2021-10-22 00:36] VITALS: BMI 27.4
== END 2021-11-20 23:59 ==
LOC: NS 09:53
PROVIDERS: PCP Family Medicine Geriatric Medicine
DX: R69 Illness, unspecified (principal)
CPT/HCPCS: 97803

== ENCOUNTER → 2021-12-10 | Outpatient (CLI) | payer MEDICARE, OTHER, SELFPAY ==
[2021-12-10 12:51] LABS: Absolute Lymphocyte Count 1.27 X10^3/uL (0.83-4.51); Absolute Neutrophil Count 5.4 X10^3/uL (2.0-7.7); Basophil# 0.05 X10^3/uL; Basophil% 0.6 % (0-1); Eosinophil# 0.05 X10^3/uL; Eosinophils% 0.6 % (0-5); Hematocrit 44.8 % (37-47); Hemoglobin 14.7 g/dL (12.0-15.0); Lymphocyte # 1.27 X10^3/ul (0.83-4.51); Lymphocyte % 15.2 % (19-41); Mean Corp Hgb Conc 32.8 g/dL (32-36); Mean Corpuscular Hgb 30.1 pg (27.0-32.0); Mean Corpuscular Volume 91.6 fL (81-99); Monocyte# 1.48 X10^3/uL; Monocyte% 17.8 % (0-10); NRBC Flagged by Analyzer 0 % (0-5); Neutrophil # 5.44 X10^3/uL (2.7-7.7); Neutrophil % 65.3 % (47-70); Platelet Count 171 K/mm3 (150-450); RBC Distribution Width CV 13.7 % (11.6-14.6); RBC Distribution Width SD 46.3 fl (35.1-43.9); Red Blood Count 4.89 M/mm3 (4.2-5.4); White Blood Count 8.3 K/mm3 (4.4-11.0)
[2021-12-10 13:11] LABS: Vitamin D,25 Hydroxy 87.4 ng/mL
[2021-12-10 13:17] LABS: ALB/GLOB Ratio 0.9 RATIO (0.9-2.4); AST(SGOT) 20 U/L (15-37); Alanine Aminotransfer ALT/SGPT 26 U/L (13-56); Albumin, Serum 3.5 g/dL (3.2-5.0); Alkaline Phosphatase 77 U/L (45-117); Anion Gap 7 (5-15); BUN 15 mg/dL (7-18); BUN/Creat Ratio 15.4 RATIO (10-20); Calcium,Total 8.7 mg/dL (8.5-10.1); Chloride 107 mmol/L (98-107); Creatinine, Serum 0.97 mg/dL (0.55-1.02); EST Glomerular Filtration Rate 60 mL/min (>60); Est Glom Filt Rate - Afr Amer 73 mL/min (>60); Globulin 3.7 g/dL (2.2-4.2); Glucose 143 mg/dL (74-106); Potassium 3.3 mmol/L (3.5-5.1); Protein, Total 7.2 g/dL (6.4-8.2); Sodium Level 140 mmol/L (136-145); Thyroid Stim Hormone (TSH) 0.19 uIU/mL (0.358-3.74)
== END | disposition home or self-care (01) ==
LOC: POLAB3 09:28
PROVIDERS: PCP Family Medicine Geriatric Medicine; Visit Provider Family Medicine Geriatric Medicine
DX: I10 Essential (primary) hypertension (principal); E55.9 Vitamin D deficiency, unspecified
CPT/HCPCS: 36415; 80053; 82306; 84443; 85025

== ENCOUNTER → 2021-12-18 | Outpatient (CLI) | payer MEDICARE, OTHER, SELFPAY ==
[2021-12-18 12:34] LABS: Anion Gap 5 (5-15); BUN 17 mg/dL (7-18); BUN/Creat Ratio 19.2 RATIO (10-20); Calcium,Total 9.5 mg/dL (8.5-10.1); Chloride 106 mmol/L (98-107); Creatinine, Serum 0.89 mg/dL (0.55-1.02); EST Glomerular Filtration Rate 67 mL/min (>60); Est Glom Filt Rate - Afr Amer 81 mL/min (>60); Glucose 113 mg/dL (74-106); Potassium 3.9 mmol/L (3.5-5.1); Sodium Level 140 mmol/L (136-145)
== END | disposition home or self-care (01) ==
LOC: POLAB3 10:01
PROVIDERS: PCP Family Medicine Geriatric Medicine; Visit Provider Family Medicine Geriatric Medicine
DX: E87.6 Hypokalemia (principal)
CPT/HCPCS: 36415; 80048

== ENCOUNTER 2021-12-22 09:30 | Outpatient (RCR) | payer MEDICARE, OTHER, SELFPAY ==
[2021-11-21 00:24] VITALS: BMI 27.4
== END 2022-01-21 23:59 ==
LOC: NS 09:30
PROVIDERS: PCP Family Medicine Geriatric Medicine
DX: Z71.3 Dietary counseling and surveillance (principal); Z68.29 Body mass index [BMI] 29.0-29.9, adult
CPT/HCPCS: 97803

== ENCOUNTER 2022-02-24 09:40 | Outpatient (RCR) | payer SELFPAY ==
[2022-01-22 00:07] VITALS: BMI 27.4
== END 2022-03-23 23:59 ==
LOC: NS 09:40
PROVIDERS: PCP Family Medicine Geriatric Medicine
DX: Z71.3 Dietary counseling and surveillance (principal); Z68.29 Body mass index [BMI] 29.0-29.9, adult; E66.9 Obesity, unspecified
CPT/HCPCS: 97803

== ENCOUNTER → 2023-01-21 | Outpatient (CLI) | payer MEDICARE, SELFPAY ==
[2023-01-21 14:34] LABS: Absolute Lymphocyte Count 1.28 X10^3/uL (0.83-4.51); Absolute Neutrophil Count 3.3 X10^3/uL (2.0-7.7); Basophil# 0.04 X10^3/uL; Basophil% 0.7 % (0-1); Eosinophil# 0.19 X10^3/uL; Eosinophils% 3.5 % (0-5); Hematocrit 43.1 % (37-47); Hemoglobin 13.9 g/dL (12.0-15.0); Lymphocyte # 1.28 X10^3/ul (0.83-4.51); Lymphocyte % 23.3 % (19-41); Mean Corp Hgb Conc 32.3 g/dL (32-36); Mean Corpuscular Hgb 29.7 pg (27.0-32.0); Mean Corpuscular Volume 92.1 fL (81-99); Mean Platelet Vol. 11.9 fl (6.2-12.0); Monocyte% 12.7 % (0-10); NRBC Flagged by Analyzer 0 % (0-5); Neutrophil # 3.28 X10^3/uL (2.7-7.7); Neutrophil % 59.6 % (47-70); Platelet Count 151 K/mm3 (150-450); RBC Distribution Width CV 13.5 % (11.6-14.6); RBC Distribution Width SD 45.8 fl (35.1-43.9); Red Blood Count 4.68 M/mm3 (4.2-5.4); White Blood Count 5.5 K/mm3 (4.4-11.0)
[2023-01-21 15:27] LABS: Vitamin D,25 Hydroxy 84.8 ng/mL
[2023-01-21 15:33] LABS: AST(SGOT) 20 U/L (15-37); Alanine Aminotransfer ALT/SGPT 22 U/L (13-56); Albumin, Serum 3.4 g/dL (3.2-5.0); Alkaline Phosphatase 81 U/L (45-117); Anion Gap 5 (5-15); BUN 14 mg/dL (7-18); BUN/Creat Ratio 18.1 RATIO (10-20); Calcium,Total 8.8 mg/dL (8.5-10.1); Chloride 108 mmol/L (98-107); Creatinine, Serum 0.78 mg/dL (0.55-1.02); EST Glomerular Filtration Rate 78 mL/min (>60); Est Glom Filt Rate - Afr Amer 94 mL/min (>60); Globulin 3.4 g/dL (2.2-4.2); Glucose 136 mg/dL (74-106); Potassium 3.7 mmol/L (3.5-5.1); Protein, Total 6.8 g/dL (6.4-8.2); Sodium Level 141 mmol/L (136-145); Thyroid Stim Hormone (TSH) 0.53 uIU/mL (0.358-3.74)
== END | disposition home or self-care (01) ==
LOC: POLAB3 09:30
PROVIDERS: PCP Family Medicine Geriatric Medicine; Visit Provider Family Medicine Geriatric Medicine
DX: I10 Essential (primary) hypertension (principal); E55.9 Vitamin D deficiency, unspecified
CPT/HCPCS: 36415; 80053; 82306; 84443; 85025

== ENCOUNTER 2023-02-09 07:39 | Outpatient (CLI) | payer MEDICARE, OTHER, SELFPAY ==
--- NOTE | 2023-02-09 07:41 | US_ITS ---
STUDY: ABDOMINAL ULTRASOUND - RIGHT UPPER QUADRANT REASON FOR VISIT: Female, 72 years old ABNORMAL LABS TECHNIQUE: Ultrasound evaluation of the right upper quadrant was performed with real-time and static todd-scale imaging. TECHNICAL QUALITY: Adequate. COMPARISON: Comparison is made with prior study August 29, 2021. FINDINGS: Liver: The liver measures 15.6 cm. There is mild increased echogenicity consistent with mild degree of fatty infiltration. The bile ducts are within normal limits. There is hepatic color flow. The direction of portal flow is hepatopetal. Multiple cysts are seen in the right lobe. The largest cyst measures 3.5 cm x 3.1 cm. this is in the dome of the right lobe. There is also evidence of a 1.8 cm x 1.7 cm x 1.5 cm echogenic nodule adjacent to the gallbladder fossa suggestive of a small hemangioma. Gallbladder: Normal distended gallbladder. The gallbladder wall measures 2.7 mm. There is a negative sonographic Zapata''s sign. There is no pericholecystic fluid. There are no gallstones. Stable 5 mm x 4 mm x 5 mm polyp adherent to the gallbladder wall. Common Bile Duct (C.B.D.): The common bile duct measures 6 mm. Pancreas: Normal size of the head, body and tail of the pancreas. There is normal echogenicity of the pancreas. There is no demonstrated pancreatic mass or cyst. Right Kidney: Normal size of the right kidney. The right kidney measures 11.1 cm x 5.9 cm x 5 cm. Normal renal cortex. The right cortex measures 1.2 cm. Stable renal cysts. The largest cyst measures 4 cm x 4.1 cm x 3.5 cm. This is in the upper pole There is no right hydronephrosis. US/Abdomen Limited IMPRESSION: Mild degree of fatty infiltration of the liver. Multiple hepatic cysts and stable hemangioma. Small polyp in the gallbladder wall. Stable right renal cysts. Electronically Signed: Dale Zuniga MD at 11:13 EDT ,
== END 2023-02-09 23:59 | disposition home or self-care (01) ==
PROVIDERS: PCP Family Medicine Geriatric Medicine; Referring Provider Family Medicine Geriatric Medicine; Visit Provider Family Medicine Geriatric Medicine
DX: R89.9 Unspecified abnormal finding in specimens from other organs, systems and tissues (principal); R73.9 Hyperglycemia, unspecified
CPT/HCPCS: 36415; 76705; 83036

== ENCOUNTER → 2023-03-04 | Outpatient (CLI) | payer MEDICARE, OTHER, SELFPAY ==
--- NOTE | 2023-03-04 08:48 | US_ITS ---
STUDY: ABDOMINAL ULTRASOUND - ELASTOGRAPHY REASON FOR VISIT: Female, 72 years old. Fatty infiltration of the liver TECHNIQUE: Liver stiffness measurements were obtained on a [employer] RS 85 ultrasound machine using a CA 1-7 probe following the U guidelines. 3 measurements were obtained using a 2-D-SWE method. TheIQR/M was 16% suggesting a quality data set. TECHNICAL QUALITY: Adequate. COMPARISON: Comparison is made with prior study dated September 04, 2021. FINDINGS: Liver: Fatty infiltration of the liver. Median liver stiffness measured 7.3 kPa. Abdomen: There is no demonstrated mass lesion. US/Elastography Parenchyma/Organ IMPRESSION: Liver stiffness measures 7.3 kPa compatible with F2-F3 (Mild to moderate liver fibrosis) Metavir score. Electronically Signed: Dale Zuniga MD at 9:56 EDT ,
== END | disposition home or self-care (01) ==
LOC: US 08:47
PROVIDERS: PCP Family Medicine Geriatric Medicine; Referring Provider Family Medicine Geriatric Medicine; Visit Provider Family Medicine Geriatric Medicine
DX: K76.0 Fatty (change of) liver, not elsewhere classified (principal)
CPT/HCPCS: 76981

== ENCOUNTER → 2023-12-20 | Outpatient (CLI) | payer MEDICARE, OTHER, SELFPAY ==
[2023-12-20 10:31] LABS: Absolute Lymphocyte Count 0.99 X10^3/uL (0.83-4.51); Absolute Neutrophil Count 3.6 X10^3/uL (2.0-7.7); Basophil# 0.05 X10^3/uL; Basophil% 0.9 % (0-1); Eosinophil# 0.29 X10^3/uL; Eosinophils% 5.1 % (0-5); Hematocrit 40.8 % (37-47); Hemoglobin 13.5 g/dL (12.0-15.0); Lymphocyte # 0.99 X10^3/ul (0.83-4.51); Lymphocyte % 17.4 % (19-41); Mean Corp Hgb Conc 33.1 g/dL (32-36); Mean Corpuscular Hgb 29.5 pg (27.0-32.0); Mean Corpuscular Volume 89.1 fL (81-99); Mean Platelet Vol. 11.6 fl (6.2-12.0); Monocyte# 0.75 X10^3/uL; Monocyte% 13.2 % (0-10); NRBC Flagged by Analyzer 0 % (0-5); Neutrophil # 3.59 X10^3/uL (2.7-7.7); Platelet Count 149 K/mm3 (150-450); RBC Distribution Width SD 42.2 fl (35.1-43.9); Red Blood Count 4.58 M/mm3 (4.2-5.4); White Blood Count 5.7 K/mm3 (4.4-11.0)
[2023-12-20 10:59] LABS: Vitamin D,25 Hydroxy 68.9 ng/mL
[2023-12-20 11:07] LABS: ALB/GLOB Ratio 0.8 RATIO (0.9-2.4); AST(SGOT) 20 U/L (15-37); Alanine Aminotransfer ALT/SGPT 20 U/L (13-56); Albumin, Serum 3.1 g/dL (3.2-5.0); Alkaline Phosphatase 85 U/L (45-117); Anion Gap 3 (5-15); BUN 12 mg/dL (7-18); BUN/Creat Ratio 15.4 RATIO (10-20); Calcium,Total 8.4 mg/dL (8.5-10.1); Chloride 109 mmol/L (98-107); Creatinine, Serum 0.78 mg/dL (0.55-1.02); EST Glomerular Filtration Rate 77 mL/min (>60); Est Glom Filt Rate - Afr Amer 93 mL/min (>60); Globulin 3.7 g/dL (2.2-4.2); Glucose 164 mg/dL (74-106); Potassium 3.3 mmol/L (3.5-5.1); Protein, Total 6.8 g/dL (6.4-8.2); Sodium Level 142 mmol/L (136-145); Thyroid Stim Hormone (TSH) 0.78 uIU/mL (0.358-3.74)
[2023-12-20 16:07] LABS: Hemoglobin A1c 6.4 % (3.8-5.6)
== END | disposition home or self-care (01) ==
LOC: POLAB3 09:24
PROVIDERS: PCP Family Medicine Geriatric Medicine; Visit Provider Family Medicine Geriatric Medicine
DX: I10 Essential (primary) hypertension (principal); E55.9 Vitamin D deficiency, unspecified; R79.9 Abnormal finding of blood chemistry, unspecified
CPT/HCPCS: 36415; 80053; 82306; 83036; 84443; 85025

== ENCOUNTER → 2023-12-27 | Outpatient (CLI) | payer MEDICARE, OTHER, SELFPAY ==
[2023-12-27 10:59] LABS: Anion Gap 4 (5-15); BUN 15 mg/dL (7-18); BUN/Creat Ratio 18.9 RATIO (10-20); Calcium,Total 8.7 mg/dL (8.5-10.1); Chloride 107 mmol/L (98-107); EST Glomerular Filtration Rate 75 mL/min (>60); Est Glom Filt Rate - Afr Amer 91 mL/min (>60); Glucose 122 mg/dL (74-106); Potassium 3.7 mmol/L (3.5-5.1); Sodium Level 140 mmol/L (136-145)
== END | disposition home or self-care (01) ==
LOC: POLAB3 10:09
PROVIDERS: PCP Family Medicine Geriatric Medicine; Visit Provider Family Medicine Geriatric Medicine
DX: E78.5 Hyperlipidemia, unspecified (principal)
CPT/HCPCS: 36415; 80048

== ENCOUNTER 2024-02-08 11:27 | Outpatient (CLI) | payer MEDICARE, OTHER, SELFPAY ==
[2024-02-08 11:46] LABS: Absolute Neutrophil Count 2.2 X10^3/uL (2.0-7.7); Basophil# 0.04 X10^3/uL; Basophil% 0.8 % (0-1); Eosinophil# 0.15 X10^3/uL; Eosinophils% 3.2 % (0-5); Hematocrit 43.2 % (37-47); Hemoglobin 13.9 g/dL (12.0-15.0); Lymphocyte % 25.2 % (19-41); Mean Corp Hgb Conc 32.2 g/dL (32-36); Mean Corpuscular Hgb 29.4 pg (27.0-32.0); Mean Corpuscular Volume 91.5 fL (81-99); Mean Platelet Vol. 11.3 fl (6.2-12.0); Monocyte# 1.18 X10^3/uL; Monocyte% 24.8 % (0-10); NRBC Flagged by Analyzer 0 % (0-5); Neutrophil # 2.18 X10^3/uL (2.7-7.7); Neutrophil % 45.8 % (47-70); Platelet Count 143 K/mm3 (150-450); RBC Distribution Width CV 13.5 % (11.6-14.6); RBC Distribution Width SD 45.9 fl (35.1-43.9); Red Blood Count 4.72 M/mm3 (4.2-5.4); White Blood Count 4.8 K/mm3 (4.4-11.0)
[2024-02-08 12:36] LABS: Vitamin D,25 Hydroxy 76.7 ng/mL
[2024-02-08 12:56] LABS: ALB/GLOB Ratio 0.9 RATIO (0.9-2.4); AST(SGOT) 26 U/L (15-37); Alanine Aminotransfer ALT/SGPT 20 U/L (13-56); Albumin, Serum 3.3 g/dL (3.2-5.0); Alkaline Phosphatase 82 U/L (45-117); Anion Gap 6 (5-15); BUN 12 mg/dL (7-18); BUN/Creat Ratio 13.9 RATIO (10-20); Calcium,Total 8.8 mg/dL (8.5-10.1); Chloride 104 mmol/L (98-107); Creatinine, Serum 0.86 mg/dL (0.55-1.02); EST Glomerular Filtration Rate 68 mL/min (>60); Est Glom Filt Rate - Afr Amer 83 mL/min (>60); Globulin 3.6 g/dL (2.2-4.2); Glucose 94 mg/dL (74-106); Potassium 3.7 mmol/L (3.5-5.1); Protein, Total 6.9 g/dL (6.4-8.2); Sodium Level 139 mmol/L (136-145); Thyroid Stim Hormone (TSH) 0.532 uIU/mL (0.358-3.740)
== END 2024-02-08 23:59 | disposition home or self-care (01) ==
LOC: POLAB3 11:28
PROVIDERS: PCP Family Medicine Geriatric Medicine; Visit Provider Family Medicine Geriatric Medicine
DX: R68.83 Chills (without fever) (principal); I10 Essential (primary) hypertension; E55.9 Vitamin D deficiency, unspecified
CPT/HCPCS: 96361; 96374; 96375; 36415; 80053; 82306; 84443; 85025; 87631

== ENCOUNTER → 2024-07-31 | Outpatient (CLI) | payer MEDICARE, OTHER, SELFPAY ==
--- NOTE | 2024-07-31 07:22 | US_ITS ---
PROCEDURE: ABD LIMITED W/ ELASTOGRAPHY REASON FOR EXAM: Fatty infiltration of the liver. Liver fibrosis. Hepatic cysts and hemangiomas. COMPARISON: Comparison is made with prior study dated May 04, 2023. TECHNIQUE: Right upper quadrant abdominal ultrasound. [employer] ElastQ Imaging shear wave elastography for non-invasive assessment of liver tissue stiffness. [employer] EPIQ Elite. FINDINGS: LIVER: Size: Unremarkable Length: 15.3 cm Echotexture: Normal Contour: Normal Lesions: Several cysts are seen in the liver. The largest measures 2.7 cm x 2.5 cm 2.2 cm. This is in the right lobe of the liver. Incidental note is made of a 1.4 cm x 2.3 cm x 2.7 cm hemangioma in the right lobe. Elastography: EQI Med: 4.3 kPa EQI Med Nathen: 1.2 m/s IQR/Med: 16 %* GALLBLADDER: No gallstones. There is evidence of a 5 mm x 4 mm gallbladder polyp adherent to the gallbladder wall. COMMON BILE DUCT: Normal it measures 6.4 mm. PANCREAS: Normal Visualized portions of the right kidney are unremarkable. Stable right renal cysts. The larger cyst measures 3.7 cm x 4.1 cm 4.1 cm. No right upper quadrant ascites. US/ABD Limited w/ Elastography IMPRESSION: NO TO MILD HEPATIC FIBROSIS Hepatic cysts as well as small hepatic hemangioma. Right renal cysts. Gallbladder polyp. Reference Values: SRU <1.37 m/s (5.7kPa): No to mild fibrosis 1.37 m/s - 2.2 m/s: Moderate to severe fibrosis >2.2 m/s (15kPa): Significant fibrosis / cirrhosis METAVIR Score F2 or higher: 1.34 m/s (5.7kPa) F3 or higher: 1.55 m/s (7.3kPa) F4: 1.80 m/s (10kPa) * If the IQR/Med is >30%, the variance in the measurements is a large and the a ccuracy of the measurement may be in question. Reading Location: [place] [address]
== END | disposition home or self-care (01) ==
LOC: US 07:19
PROVIDERS: PCP Family Medicine Geriatric Medicine; Referring Provider Internal Medicine; Visit Provider Internal Medicine
DX: K76.0 Fatty (change of) liver, not elsewhere classified (principal); E80.6 Other disorders of bilirubin metabolism; D18.03 Hemangioma of intra-abdominal structures
CPT/HCPCS: 76705; 76981

== ENCOUNTER → 2024-08-08 | Outpatient (CLI) | payer MEDICARE, OTHER, SELFPAY ==
[2024-08-08 11:18] LABS: Absolute Lymphocyte Count 1.29 X10^3/uL (0.83-4.51); Absolute Neutrophil Count 3.3 X10^3/uL (2.0-7.7); Basophil# 0.04 X10^3/uL; Basophil% 0.7 % (0-1); Eosinophil# 0.17 X10^3/uL; Eosinophils% 3.1 % (0-5); Hematocrit 41.5 % (37-47); Hemoglobin 14.2 g/dL (12.0-15.0); Lymphocyte # 1.29 X10^3/ul (0.83-4.51); Lymphocyte % 23.5 % (19-41); Mean Corp Hgb Conc 34.2 g/dL (32-36); Mean Corpuscular Hgb 30.9 pg (27.0-32.0); Mean Corpuscular Volume 90.2 fL (81-99); Mean Platelet Vol. 11.9 fl (6.2-12.0); Monocyte% 12.8 % (0-10); NRBC Flagged by Analyzer 0 % (0-5); Neutrophil # 3.28 X10^3/uL (2.7-7.7); Neutrophil % 59.7 % (47-70); Platelet Count 146 K/mm3 (150-450); RBC Distribution Width CV 13.1 % (11.6-14.6); RBC Distribution Width SD 43.1 fl (35.1-43.9); White Blood Count 5.5 K/mm3 (4.4-11.0)
[2024-08-08 11:57] LABS: ALB/GLOB Ratio 1.7 RATIO (0.9-2.4); AST(SGOT) 25 U/L (<=31); Alanine Aminotransfer ALT/SGPT 17 U/L (<=34); Albumin, Serum 4.2 g/dL (3.4-4.8); Alkaline Phosphatase 59 U/L (35-104); Anion Gap 8 (5-15); BUN 12 mg/dL (4-19); BUN/Creat Ratio 17.2 RATIO (10-20); Calcium,Total 9.5 mg/dL (7.6-11.0); Carbon Dioxide 27.2 mmol/L (21.0-32.0); Chloride 105 mmol/L (98-108); Creatinine, Serum 0.69 mg/dL (0.70-1.20); EST Glomerular Filtration Rate 92 (>60); Globulin 2.5 g/dL (2.2-4.2); Glucose 92 mg/dL (70-99); Potassium 3.6 mmol/L (3.3-5.1); Protein, Total 6.7 g/dL (5.9-8.4); Sodium Level 140 mmol/L (133-145); Thyroid Stim Hormone (TSH) 0.595 uIU/mL (0.300-4.200); Vitamin D,25 Hydroxy 76.4 ng/mL (30-100)
== END | disposition home or self-care (01) ==
LOC: LAB 10:57
PROVIDERS: PCP Family Medicine Geriatric Medicine; Referring Provider Family Medicine Geriatric Medicine; Visit Provider Family Medicine Geriatric Medicine
DX: I10 Essential (primary) hypertension (principal); E55.9 Vitamin D deficiency, unspecified
CPT/HCPCS: 36415; 80053; 82306; 84443; 85025

== ENCOUNTER → 2024-08-24 | Outpatient (CLI) | payer MEDICARE, OTHER, SELFPAY ==
--- NOTE | 2024-08-25 07:08 | STRESSREP ---
Stress Test Report Pharmacologic myocardial perfusion stress test. 74-year-old lady with an abnormal EKG Resting EKG demonstrates sinus rhythm with a rate of 67 bpm. Resting blood pressure is 152/80 mmHg. 0.4 mg of regadenoson was infused per usual protocol followed by rapid intravenous saline flush injection. Continuous EKG monitoring was performed. The maximum heart rate was 100 bpm which was 68% of max impacted heart rate the maximum workload was 1 metabolic equivalent. At rest there were no ST or T wave changes noted to suggest ischemia and at peak infusion nonspecific ST changes were noted which did not meet the criteria for ischemia. No clinical angina is noted. The final blood pressure was 130/74 mmHg. Myocardial perfusion protocol. 11.2 mCi of technetium 99m sestamibi was injected at rest. 0.4 mg of regadenoson was infused per usual protocol. At peak infusion 33.8 mCi of technetium 99m sestamibi was injected stress images were obtained stress and rest images were reconstructed and compared in the short axis vertical long and horizontal long axis. Gated images were also obtained. Perfusion SPECT analysis: Review of the stress images demonstrate normal uptake of tracer noted in all areas of the myocardium. The resting images similar demonstrated normal uptake of tracer noted in all areas of the myocardium. No areas of reversibility are noted to suggest ischemia and no previous infarct is noted. Gated SPECT analysis: The gated ejection fraction is 70%. Conclusion: Normal pharmacologic myocardial perfusion stress test. Preserved ejection fraction.
== END | disposition home or self-care (01) ==
LOC: CVS 06:56
PROVIDERS: PCP Family Medicine Geriatric Medicine; Referring Provider Internal Medicine Endocrinology, Diabetes & Metabolism; Visit Provider Internal Medicine Endocrinology, Diabetes & Metabolism
DX: R94.31 Abnormal electrocardiogram [ECG] [EKG] (principal)
CPT/HCPCS: 78452; 93017; A9500; A4216; J2785

== ENCOUNTER → 2025-02-13 | Outpatient (CLI) | payer MEDICARE, OTHER, SELFPAY ==
[2025-02-13 10:32] LABS: Hematocrit 37.7 % (37-47); Hemoglobin 12.7 g/dL (12.0-15.0); Immature Granulocytes Count 0.020 X10^3/uL (0.0-0.0); Mean Corp Hgb Conc 33.7 g/dL (32-36); Mean Corpuscular Volume 92.2 fL (81-99); Mean Platelet Vol. 11.1 fl (6.2-12.0); NRBC Flagged by Analyzer 0 % (0-5); Platelet Count 168 K/mm3 (150-450); RBC Distribution Width CV 12.9 % (11.6-14.6); RBC Distribution Width SD 43.8 fl (35.1-43.9); Red Blood Count 4.09 M/mm3 (4.2-5.4); White Blood Count 7.0 K/mm3 (4.4-11.0)
[2025-02-13 11:30] LABS: Prothrombin Time (Protime)PT. 13.7 SECONDS (11.7-14.9)
[2025-02-13 11:33] LABS: AST(SGOT) 22 U/L (<=31); Alanine Aminotransfer ALT/SGPT 15 U/L (<=34); Albumin, Serum 4.0 g/dL (3.4-4.8); Alkaline Phosphatase 63 U/L (35-104); Anion Gap 11 (5-15); BUN 24 mg/dL (4-19); BUN/Creat Ratio 23.6 RATIO (10-20); Calcium,Total 8.9 mg/dL (7.6-11.0); Carbon Dioxide 26.0 mmol/L (21.0-32.0); Chloride 102 mmol/L (98-108); Globulin 2.3 g/dL (2.2-4.2); Glucose 108 mg/dL (70-99); Potassium 4.1 mmol/L (3.3-5.1)
[2025-02-13 11:34] LABS: Vitamin D,25 Hydroxy 59.3 ng/mL (30-100)
[2025-02-13 12:27] LABS: Bilirubin, Direct 0.54 mg/dL (0.00-0.30); Ferritin 335 ng/mL (22-378); Iron Binding Capacity,Total 303 ug/dL (250-450)
[2025-02-13 13:40] LABS: CRP < 3.00 mg/L (0.0-3.0); Iron 93 ug/dL (50-170); Iron Binding Capacity,Unsat 210 ug/dL (228-428); LDH 213 U/L (84-246)
[2025-02-13 18:14] LABS: Xtra Tube Kwok EXTRA TUBE
[2025-02-14 15:08] LABS: ANTINUCLEAR ANTIBODIES DIRECT Negative (Negative)
[2025-02-17 17:08] LABS: Albumin 3.7 g/dL (2.9-4.4); Anti-Smooth Muscle ABS 3 Units (0-19); Copper, Serum or Plasma 69 ug/dL (80-158); Gamma Globulin 0.8 g/dL (0.4-1.8); HEPATITIS B SURFACE AG Negative (Negative); Hep C Antibodies Non Reactive (Non Reactive); Immunoglobulin A 236 mg/dL (64-422); Immunoglobulin G 790 mg/dL (586-1602); Immunoglobulin M 55 mg/dL (26-217); PROEL- TOTAL PROTEIN 6.3 g/dL (6.0-8.5)
== END | disposition home or self-care (01) ==
LOC: POLAB3 09:58
PROVIDERS: Internal Medicine; PCP Family Medicine Geriatric Medicine; Visit Provider Family Medicine Geriatric Medicine
DX: I10 Essential (primary) hypertension (principal); E03.9 Hypothyroidism, unspecified; E55.9 Vitamin D deficiency, unspecified; R79.89 Other specified abnormal findings of blood chemistry; K76.0 Fatty (change of) liver, not elsewhere classified; E80.6 Other disorders of bilirubin metabolism; D18.03 Hemangioma of intra-abdominal structures; E78.5 Hyperlipidemia, unspecified; K74.00 Hepatic fibrosis, unspecified; R63.4 Abnormal weight loss
CPT/HCPCS: 36415; 80053; 80074; 82105; 82248; 82306; 82390; 82525; 82728; 82784; 82785; 83516; 83540; 83550; 83615; 84165; 84439; 84443; 85025; 85610; 86038; 86140; 86225; 86334